=== PATIENT | female | born 1935 | race Caucasian/White ===

== ENCOUNTER 2018-07-16 12:29 | Inpatient (IN) ==
[2018-07-16 13:24] LABS: EOS# 0.06 X1000 (0.0-0.7); HEMOGLOBIN 10.9 g/dL (12.0-16.0); IMM GRAN# 0.02 X1000 (0.0-0.04); IMM GRAN% 0.7 % (0.0-0.5); LYMPH# 0.25 X1000 (1.2-3.4); LYMPH% 8.5 % (20.5-51.1); MCH 29.4 PG (27-31); MCHC 31.1 g/dL (33-37); MCV 94.3 FL (81-99); MONO# 0.22 X1000 (0.11-0.59); MONO% 7.5 % (1.7-9.3); MPV 9.7 FL (7.4-10.4); NEUT# 2.38 X1000 (1.4-6.5); NEUT% 81.3 % (42.2-75.2); PLT 96 X1000 (130-400); RBC 3.71 XMIL (4.2-5.4); RDW 16.3 % (11.5-14.5); WBC 2.93 X1000 (4.8-10.8)
[2018-07-16 13:26] LABS: INR 1.11; PROTIME 15.2 Seconds (11.0-16.0)
[2018-07-16 13:27] LABS: PTT 31.6 Seconds (22.3-41.8)
[2018-07-16 13:41] LABS: ALB/GLOB RATIO 1.1; ALBUMIN 3.2 g/dL (3.5-5.0); CALCIUM 9.6 mg/dL (8.8-10.2); CREATININE 0.9 mg/dL (0.5-0.9); POTASSIUM 4.5 mmol/L (3.5-5.1); TOTAL BILIRUBIN 0.43 mg/dL (0.20-1.00)
[2018-07-16] MEDS ORDERED: ZOFRAN IV ONE (14:22)
[2018-07-16] MEDS ORDERED: NS 1,000 ML IV ONE (14:22)
[2018-07-16] MEDS ORDERED: MORPHINE IV ONE (14:22)
[2018-07-16] MEDS ORDERED: LASIX IV ONE (14:22)
--- NOTE | 2018-07-16 14:43 | Diag Imaging Result Doc PS360 ---
EXAM: CHEST-PORTABLE 07/16/2018 HISTORY: short of breath TECHNIQUE: AP portable upright at 1435 COMMENT: The inspiration is less optimal than on 05/13/2011. Otherwise, considering differences in inspiration there has been no significant change. IMPRESSION: No acute disease. Electronically signed by Constantine Cardona 07/16/2018 2:41 PM
--- NOTE | 2018-07-16 14:59 | PROVIDER DOCUMENTATION ---
This chart was entered by Lauryn John Scribe, acting as scribe for Murali Ballesteros MD. HPI-General Adult - General Chief Complaint: Weakness Stated Complaint: WEAKNESS,CIRRHOSIS OF THE LIVER Time Seen by Provider: 07/16/18 12:49 Source: patient, family Allergies/Adverse Reactions: Patient Allergies Allergy/AdvReac Type Severity Reaction Status Date / Time No Known Allergies Allergy Verified 06/04/16 12:49 Home Medications: Home Medication List Medication Instructions Recorded Confirmed Last Taken Type ATORVAstatin [Lipitor] 10 mg PO QHS 07/02/14 07/16/18 06/22/18 21:00 History Insulin Glargine,Hum.rec.anlog 34 unit SQ QAM 07/02/14 07/16/18 06/22/18 10:00 History [Lantus Solostar] Levothyroxine Sodium [Synthroid] 150 microgm PO DAILY 07/02/14 07/16/18 22:00 History Verapamil HCl [Verapamil Sr] 240 mg PO DAILY 07/02/14 07/16/18 06/23/18 07:00 History Lansoprazole [Prevacid] 30 mg pe PO QAM 04/24/16 07/16/18 06/23/18 07:00 History Hydrocodone/APAP 7.5 mg/325 mg 1 each PO Q4H PRN PRN #40 tablet 06/06/1606/23/18 07:00 Rx [Mcdonough-7.5] Insulin Glargine [Lantus] 20 unit SUBQ QHS 10/23/17 07/16/18 06/22/18 22:00 History Furosemide [Lasix] 40 mg PO DAILY 03/23/18 07/16/18 06/22/18 11:00 History Spironolactone 1 tab PO BID 03/23/18 07/16/18 06/23/18 07:00 History - History of Present Illness -Gen Adult Nature of Presenting Problems: 82 yowf presents to the ed with c/o ascites. sts had paracentesis 3 weeks prior and had 7 liters removed. pt now has decreased appetite, weakness and sob since fluid overload. pt has noted BLE edema +3 Location of Pain/Injury: reports: abdomen Pain Radiation: reports: no radiation Quality of Pain: reports: fullness Severity: reports: moderate Onset/Duration: reports: other (3 weeks since last paracentesis) Timing: reports: still present, constant, getting worse Context/Activities at Onset: reports: light activity Modifying Factors: improves with: nothing Associated Symptoms: reports: loss of appetite, shortness of breath, weakness. denies: back/neck pain, chest pain, diarrhea, dizziness, headaches, vomiting Similar Symptoms Previously?: Yes Recently seen or treated by another doctor?: Yes Review of Systems - Adult - REVIEW OF SYSTEMS - ADULT Constitutional: reports: no symptoms reported Eyes: reports: no symptoms reported Ears, Nose, Mouth & Throat: reports: no symptoms reported Cardiovascular: denies: chest pain, palpitations Respiratory: reports: shortness of breath. denies: cough, wheezing Gastrointestinal: reports: see HPI, abdominal pain (fullness ascites), poor appetite. denies: diarrhea, nausea, vomiting Genitourinary: reports: no symptoms reported Musculoskeletal: reports: see HPI, muscle weakness (generalized) Integumentary: reports: no symptoms reported Neurological: denies: dizziness/vertigo, headache/migraines Psychiatric: reports: no symptoms reported Endocrine: reports: no symptoms reported Hematologic/Lymphatic: reports: no symptoms reported Allergic/Immunologic: reports: no symptoms reported All Other Systems: Reviewed and Negative Past History - Adult - PAST MEDICAL HISTORY-ADULT Review of Records: reports: Old Records Reviewed, Nursing Assessment Review, Medications Reviewed, Social history reviewed & non-contributory. Major Childhood Illnesses: reports: denies history Cardiovascular: reports: HTN, hyperlipidemia Respiratory: reports: denies history Gastrointestinal: reports: GERD Obstetrical/Gynecological: reports: denies history Genitourinary: reports: denies history Musculoskeletal: reports: denies history Neurological: reports: denies history Psychiatric: reports: denies history Endocrine/Immune: reports: Diabetes Diabetes Type: Type 2 Other Conditions: reports: denies history - PRIOR SURGERIES/PROCEDURES Surgical/Procedure History: reports: reviewed, not pertinent - IMMUNIZATION STATUS Childhood Immunizations: See Nurse Assessment Flu Vaccine: See Nurse Assessment - FAMILY HISTORY Family History: reviewed, not pertinent - SOCIAL HISTORY Smoking: denies Substance Use: denies Living Situation: family Physical Exam-General - PHYSICAL EXAM-ADULT Initial Vital Signs Reviewed: Yes - CONSTITUTIONAL General Appearance: alert, mild distress. negative: appears well - EYES Eyes: PERRL/EOMI, pale conjunctivae - HEAD, EARS, NOSE, MOUTH & THROAT HENMT: other (pale lips). negative: moist mucous membranes - NECK Neck: normal inspection - RESPIRATORY Respiratory: chest non-tender, decreased breath sounds, increased rate (22) - CARDIOVASCULAR Cardiovascular: normal peripheral pulses, tachycardia (102) - GASTROINTESTINAL (ABDOMEN) Abdominal Exam: normal bowel sounds, distended. negative: rigid - LYMPHATIC Lymphatic: no adenopathy - MUSCULOSKELETAL Back Exam: normal inspection Extremity: pelvis stable, swelling (BLE edema) - SKIN Integumentary: warm/dry, pallor - NEUROLOGIC Neurologic: grossly normal - PSYCHIATRIC Psych/Mental Status: normal mood/affect, normal thought content, normal thought process, oriented x 3 Progress - PLAN OF CARE/RESULTS Progress/Plan/Lab Results: Vital Signs - 8 hr 07/16/18 12:42 Temperature 97.0 F L Pulse Rate 98 H Respiratory Rate 18 Blood Pressure 117/66 O2 Sat by Pulse Oximetry 100 Laboratory Results - last 24 hr 07/16/18 07/16/18 07/16/18 12:50 12:50 12:50 WBC 2.93 L RBC 3.71 L Hgb 10.9 L Hct 35.0 L MCV 94.3 MCH 29.4 MCHC 31.1 L RDW Std Deviation 16.3 H Plt Count 96 L MPV 9.7 Immature Gran % (Auto) 0.7 H Neut % (Auto) 81.3 H Lymph % (Auto) 8.5 L [place] % (Auto) 7.5 Eos % (Auto) 2.0 Baso % (Auto) 0.0 Immature Gran # (Auto) 0.02 Neut # (Auto) 2.38 Lymph # (Auto) 0.25 L [place] # (Auto) 0.22 Eos # (Auto) 0.06 Baso # (Auto) 0.00 PT INR PTT (Actin FS) Sodium 138 Potassium 4.5 Chloride 102 Carbon Dioxide 26 Anion Gap 10 BUN 18 Creatinine 0.9 Estimated GFR/1.73 m2 60 BUN/Creatinine Ratio 20 Glucose 61 L Calculated Osmolality 275 Calcium 9.6 Total Bilirubin 0.43 AST 23 ALT 13 Alkaline Phosphatase 143 H Total Protein 6.0 L Albumin 3.2 L Globulin 2.8 Albumin/Globulin Ratio 1.1 Amylase 25 Lipase 15 Plasma/Serum Ethyl Alc 07/16/18 12:50 WBC RBC Hgb Hct MCV MCH MCHC RDW Std Deviation Plt Count MPV Immature Gran % (Auto) Neut % (Auto) Lymph % (Auto) Converse % (Auto) Eos % (Auto) Baso % (Auto) Immature Gran # (Auto) Neut # (Auto) Lymph # (Auto) Converse # (Auto) Eos # (Auto) Baso # (Auto) PT 15.2 INR 1.11 PTT (Actin FS) 31.6 Sodium Potassium Chloride Carbon Dioxide Anion Gap BUN Creatinine Estimated GFR/1.73 m2 BUN/Creatinine Ratio Glucose Calculated Osmolality Calcium Total Bilirubin AST ALT Alkaline Phosphatase Total Protein Albumin Globulin Albumin/Globulin Ratio Amylase Lipase Plasma/Serum Ethyl Alc Orders Category Date Time Status Saline Loc DIRECTED Care 07/16/18 12:46 Active NPO Diet 07/16/18 12:46 Active ALCOHOL BLOOD Stat Lab 07/16/18 12:50 Completed AMYLASE [CHEM] Stat Lab 07/16/18 12:50 Completed CBC WITH ELECTRONIC DIFF [HEME] Stat Lab 07/16/18 12:50 Completed COMPREHENSIVE METABOLIC PANEL [CHEM] Stat Lab 07/16/18 12:50 Completed LIPASE [CHEM] Stat Lab 07/16/18 12:50 Completed PROTIME WITH INR [COAG] Stat Lab 07/16/18 12:50 Completed PTT [COAG] Stat Lab 07/16/18 12:50 Completed TROPONIN T Stat Lab 07/16/18 14:06 Ordered URINALYSIS W/POSS RFLX CULT [URINALYSIS] Stat Lab 07/16/18 12:46 Uncollected Result Diagrams: 07/16/18 12:50 07/16/18 12:50 - XRAY 1 XRAY: Bilateral XRAY Study: Chest Impression: See EMR Report (EXAM: CHEST-PORTABLE 07/16/2018 HISTORY: short of breath TECHNIQUE: AP portable upright at 1435 COMMENT: The inspiration is less optimal than on 05/13/2011. Otherwise, considering differences in inspiration there has been no significant change. IMPRESSION: No acute disease. Electronically signed by Constantine Cardona 07/16/2018 2:41 PM 1441 Interpreting Physician: Constantine Cardona MD Dictated Date/Time: 07/16/18 1440 cc: Murali Ballesteros MD; Jose R Anderson MD) - CONSULTS/PCP/HOSPITALIST Notification #1 *Consult/PCP/Hospitalist*: hospitalist dr quansah Time Discussed: 14:32 Consult Disposition: Admit Departure - Departure Date of Disposition Decision: 07/16/18 Time of Disposition Decision: 14:57 DIAGNOSIS: Myelodysplastic syndrome Cirrhosis of liver Qualifiers: Hepatic cirrhosis type: unspecified hepatic cirrhosis Ascites presence: with ascites Qualified Code(s): K74.60 - Unspecified cirrhosis of liver; R18.8 - Other ascites Dyspnea Qualifiers: Dyspnea type: shortness of breath Qualified Code(s): R06.02 - Shortness of breath; R06.00 - Dyspnea, unspecified; R06.01 - Orthopnea Disposition: ADMITTED INPATIENT 09 Certified Medical Emergency: Emergent Condition: Fair Referrals and Follow-Ups: Jose R Anderson MD [Primary Care Provider] - - Critical Care Note This patient required my direct & personal management of CC.: No Attestation - Physician/ DEVAN Attestation Patient care was provided by Advanced Practice Provider:: No The physician spent face to face time with patient:: Yes Advanced Practice Provider documentation review:: Supervising physician onsite and consulted in the evaluation and care of this patient. The physician did have a face to face encounter with the patient. This chart was documented by the indicated scribe, (Lauryn John Scribe) and accurately reflects the services I performed and decisions made by me, Murali Ballesteros MD, as attested by the provider's signature.
[2018-07-16] MEDS ORDERED: NORCO-7.5 PO PRN ×2 (15:15→17:21)
[2018-07-16 15:46] LABS: RETIC% 2.27 % (0.8-2.1); RETIC-HE 30.4 PG (28.2-36.6)
[2018-07-16 15:49] LABS: IRON SATURATION 28 %; TIBC 346 ug/dL; TOTAL IRON 97 ug/dL (49-151); UNBOUND IRON 249 ug/dL (112-346)
[2018-07-16 16:01] LABS: HEMOGLOBIN A1C 4.7 % (4.8-6.0)
[2018-07-16 16:04] LABS: URINE SOURCE CLEAN CATCH
[2018-07-16 16:08] LABS: BILIRUBIN URINE NEGATIVE (NEGATIVE); BLOOD URINE NEGATIVE (NEGATIVE); COLOR YELLOW; GLUCOSE URINE NEGATIVE (NEGATIVE); KETONE URINE NEGATIVE (NEGATIVE); LEUKOCYTES URINE NEGATIVE (NEGATIVE); NITRITE URINE NEGATIVE (NEGATIVE); PH URINE 7.5; PROTEIN URINE NEGATIVE (NEGATIVE); SP GRAVITY URINE 1.004; TURBIDITY URINE HAZY (CLEAR); UROBILINOGEN URINE NORMAL (NORMAL)
[2018-07-16 16:10] LABS: UR EPITHELIAL CELLS <10 /HPF (<10); URINE BACTERIA NEGATIVE /HPF; URINE RBC <10 /HPF (<10); URINE WBC <10 /HPF (<10)
--- NOTE | 2018-07-16 16:13 | EKG Report ---
Test Performed on : 07/16/2018 4:08:51 PM Test Reason : short of breath Blood Pressure : / mmHG Vent. Rate : 086 BPM Atrial Rate : 086 BPM P-R Int : 162 ms QRS Dur : 076 ms QT Int : 386 ms P-R-T Axes : 073 -16 019 degrees QTc Int : 461 ms Normal sinus rhythm. Minimal voltage criteria for LVH, may be normal variant Possible Anterior infarct (cited on or before 05-JUN-2016) Abnormal ECG When compared with ECG of 05-JUN-2016 06:05, No significant change was found Unconfirmed Result
[2018-07-16 16:15] LABS: URINE CRYSTALS NONE SEEN
--- NOTE | 2018-07-16 16:40 | HISTORY AND PHYSICAL ---
ONCOLOGIST: Dr. Ramesh CARPENTER ROUGH: Dr. Torres PCP: Dr. Jose R Anderson CHIEF COMPLAINT: Weakness and abdominal distention. HISTORY OF PRESENT ILLNESS: Ms. Huntley is an 82-year-old female with a history of cirrhosis of the liver, diabetes mellitus type 2 requiring insulin, question of MDS, chronic pancytopenia, who presents with increasing weakness over the past 3 weeks. Due to her cirrhosis and portal hypertension she has refractory ascites and requires frequent paracentesis. Her most recent was on 06/23/18. She goes to Dr. Ramesh weekly for iron transfusions and was most recently there yesterday. She has been more weak than normal although she denies any specific neurologic complaint, no unilateral weakness, no facial numbness. She c/o abdominal distention and some mild pain but no vomiting, no fever, no hematemesis, no hematochezia or melena. Her workup in the ER has revealed pancytopenia which is indeed chronic, but at baseline and actually somewhat improved from baseline. She is mildly hypoglycemic but otherwise there is no acute abnormalities on lab work. Given her weakness and ascites we have been asked to admit her for further treatment and evaluation. PAST MEDICAL HISTORY: 1. Nonalcoholic steatohepatitis, cirrhosis of the liver with portal hypertension. 2. Question of MDS, the patient does report a blood disorder which she sees Dr. Ramesh for. We did review pathology from previous bone marrow biopsies which was all negative for MDS, she does go to Dr. Ramesh for iron infusions. 3. Essential hypertension. 4. Hyperlipidemia. 5. Diabetes mellitus type 2 requiring insulin. 6. Iron deficiency anemia. SURGICAL HISTORY: Bone marrow biopsy, otherwise none. SOCIAL HISTORY: No tobacco, alcohol, or drug use. FAMILY HISTORY: Noncontributory. REVIEW OF SYSTEMS: A 14-point review of systems obtained and found to be negative with the exception of the HPI. ALLERGIES: No known drug allergies. HOME MEDICATIONS: Lipitor 10 mg p.o. h.s., Lasix 40 mg p.o. daily, Lantus 20 units subcu h.s., glargine insulin 34 units subcu a.m., Prevacid 30 mg p.o. a.m., Synthroid 150 mcg p.o. daily, Aldactone 25 mg b.i.d., verapamil 240 mg p.o. daily. PHYSICAL EXAMINATION: VITAL SIGNS: Blood pressure 117/66. Heart rate 98. Respiratory rate 18. O2 sat 100% on room air. Temperature 97 Fahrenheit. GENERAL: An elderly, chronically ill appearing, 82-year-old female lying on the hospital bed in no acute distress. NEUROLOGIC: She is somewhat lethargic but is able to answer questions appropriately. Follows commands without focal deficits. HEENT: Head is atraumatic and normocephalic. Pupils are equal, round, and reactive to light. Oral mucosa is a bit dry. NECK: Trachea is midline. There is no JVD. CHEST: Clear to auscultation bilaterally. CV: Regular rate and rhythm. S1, S2 is noted. No murmurs. GI: Distended with ascites. Some mild right upper quadrant tenderness to palpation but no rigidity. Bowel sounds are hypoactive. EXTREMITIES: 2+ pitting edema bilaterally. DIAGNOSTIC DATA: WBC 2.93, hemoglobin 10.9, hematocrit 35, platelet count 96. INR 1.11. Sodium 138, potassium 4.5, chloride 102, CO2 26, anion gap 10, BUN 18, creatinine 0.9, glucose 61. LFTs: AST 23, ALT 13, alk phos 143. Troponin negative. Albumin 3.2. ASSESSMENT AND PLAN: 1. Refractory ascites: We will admit and obtain a therapeutic paracentesis with fluid analysis. We will also add albumin q.6 hours x4 doses. We will continue diuretics and volume and electrolyte management. 2. Weakness: Likely multifactorial. We will check ammonia level, iron studies , and recheck her glucose as it is 61, if it is continued low we will give her some IV glucose. No focal deficits noted. 3. Diabetes mellitus: We will add pattern sugars, sliding scale insulin, hold off on her scheduled insulin until her blood sugars have improved a bit. 4. Hyperlipidemia: We will hold off on her statin right now due to her liver issues. 5. Hypertension: Stable. Continue verapamil. 6. Pancytopenia: Likely secondary to her cirrhosis. We will check thyroid studies as well as iron studies. Again, there is a question of myelodysplastic syndrome; however, workup in 2016 was negative for myelodysplastic syndrome. 7. Deep venous thrombosis prophylaxis with SCDs. Further recommendations to follow. Dictated by ESTEFANIA Patel for Jarrett Gibbs MD cc: ESTEFANIA Patel MD Sammy Becdach, MD Khurshid Yousuf, MD Brian R. James, MD I have seen and examined Ms Huntley today. and 2 sons were at her bedside at the encounter. I have also reviewed her labs and imaging studies. Ms feels weak and worsening ascites. I agree with the above HPI and the plan reflect my opinion discussed with the EVALUATION ENGINEER. DANIELLE
[2018-07-16] MEDS ORDERED: D50W SYRINGE IV ONE (17:28)
[2018-07-16] MEDS: ALBUMIN 25% IV SCH ×2 (17:30→22:46)
[2018-07-16] MEDS: MORPHINE IV PRN (20:51)
[2018-07-16] MEDS: ALDACTONE PO SCH (21:08)
[2018-07-16 23:46] LABS: UR POTASSIUM 36.4 mmoll
[2018-07-17] MEDS: ALBUMIN 25% IV SCH ×2 (04:45→10:41)
[2018-07-17 06:39] LABS: EOS# 0.05 X1000 (0.0-0.7); LYMPH% 11.9 % (20.5-51.1); MCH 28.8 PG (27-31); MCV 96.2 FL (81-99); MONO# 0.12 X1000 (0.11-0.59); MONO% 7.1 % (1.7-9.3); MPV 9.6 FL (7.4-10.4); NEUT# 1.31 X1000 (1.4-6.5); PLT 76 X1000 (130-400); RBC 3.12 XMIL (4.2-5.4); RDW 16.1 % (11.5-14.5); WBC 1.68 X1000 (4.8-10.8)
[2018-07-17 06:41] LABS: INR 1.18
[2018-07-17 06:42] LABS: PTT 37.9 Seconds (22.3-41.8)
[2018-07-17] MEDS ORDERED: PRILOSEC PO SCH (07:00)
[2018-07-17] MEDS ORDERED: SYNTHROID PO SCH (07:00)
[2018-07-17 07:05] LABS: ALB/GLOB RATIO 2.3; ALBUMIN 4.3 g/dL (3.5-5.0); CALCIUM 9.6 mg/dL (8.8-10.2); CREATININE 1.2 mg/dL (0.5-0.9); POTASSIUM 3.7 mmol/L (3.5-5.1); TOTAL BILIRUBIN 0.74 mg/dL (0.20-1.00); TOTAL PROTEIN 6.2 g/dL (6.3-8.3)
[2018-07-17] MEDS ORDERED: LASIX IV SCH (09:00)
[2018-07-17] MEDS ORDERED: ISOPTIN SR PO SCH (09:00)
--- NOTE | 2018-07-17 09:06 | Diag Imaging Result Doc PS360 ---
EXAM: US ABD PARACENTESIS W S/I 07/17/2018 HISTORY: ASCITES TECHNIQUE: Ultrasound-guided paracentesis COMMENT: The risks and benefits of the procedure including the possibility of bleeding, infection, or reaction to lidocaine as well as the possibility of inadvertent puncture of hollow viscus was discussed with the patient and she agreed to the procedure. Following sterile preparation the skin and administration 1% lidocaine to the skin and deeper soft tissues the paracentesis catheter was placed and subsequently 7.6 L of clear straw-colored fluid was drained. There are no immediate complications. After the catheter was removed the patient stated that she had had some skin irritation and itching following the previous procedure, which she attributed to the sterile eye drape. If and when the patient returns for another procedure, it may be desirable to substitute other sterile draping for the adhesive eye drape. IMPRESSION: Successful ultrasound-guided paracentesis. Electronically signed by Constantine Cardona 07/17/2018 9:04 AM
[2018-07-17] MEDS: MORPHINE IV PRN (09:31)
[2018-07-17] MEDS ORDERED: DEMEROL IV PRN (09:43)
--- NOTE | 2018-07-17 10:24 | PROGRESS NOTE ---
DATE: 07/17/2018 SUBJECTIVE: Patient is back from procedure, paracentesis. She is feeling much better. They removed 7.6 L of ascitic fluid. Reports mild abdominal pain, but is diffuse. OBJECTIVE: Vital Signs: Temperature 97.9 degrees, heart rate 78, respiratory rate 16, blood pressure 134/49, O2 saturation 100% on room air. General: This is a chronically ill-looking 82- year-old female lying in bed, in no acute distress. HEENT: Head is normocephalic and atraumatic. Neck: No JVD noted. No carotid bruits. No lymphadenopathy. No thyromegaly. Cardiovascular: S1, S2 heard. No murmurs, gallops, or rubs. Regular rate and rhythm. Respiratory: Clear bilaterally to auscultation. No work of breathing or using accessory muscles. Abdomen: Soft, a little bit distended with minimal distention, mild diffuse tenderness to palpation all over 4 quadrants. No signs of peritoneal irritation. Bowel sounds present. Extremity: 1+ pitting edema in both lower extremities. Neurological: Patient is awake and alert. LABORATORY DATA: White cell count 1.68, hemoglobin 9.0, hematocrit 30.0, platelets 76,000 with normal BMP except creatinine 1.2. ASSESSMENT AND PLAN: 1. Nonalcoholic liver cirrhosis with refractory ascites. That is the reason why this patient was admitted to the hospital. We have order therapeutic paracenteses, which was done this morning and so far, they have removed 7.6 liters of ascitic fluid. The patient reports that since last March, she started accumulating fluid in the abdomen. At this point, we have consulted Dr. Torres, who is his primary GI doctor to see there is any further procedures or medication we may do for this patient. At this point, we will continue with the current medications in this case is Lasix 40 mg IV q.24 hour. Patient receiving morphine 2 mg IV q.4 hours. Patient reports still being in pain. I think if that medication is not working, we can try Demerol here and stop morphine. We will see how this patient does. 2. Diabetes mellitus type 2. Patient is on sliding scale and Accu-Cheks before meals and also at bedtime. We will continue with the same management. 3. Hyperlipidemia. Because of liver disease, medication in this case, statin, has been held. 4. Hypertension. Blood pressure is under control. We will continue with home medication, Verapamil. 5. Pancytopenia. I am not quite sure if this patient has myelodysplastic syndrome, as the history and physical mentioned it or this is pancytopenia secondary to liver cirrhosis. In any case, Hematology/Oncology has been consulted. We will follow recommendations. 6. Metabolic encephalopathy. I think this condition is almost resolved. Ammonia level was normal. Patient apparently, as per family, who is at bedside, is more alert and awake. We will continue to monitor. 7. Deep vein thrombosis prophylaxis with SCDs. 8. Disposition. Depending upon clinical situation of the patient and GI recommendations. cc: Roderick Jurado MD
[2018-07-17] MEDS: ALDACTONE PO SCH (10:39)
[2018-07-17 10:44] LABS: TOTAL PROT BODY FLUID 2.5 g/dL
[2018-07-17 10:48] LABS: ALBUMIN BODY FLUID 1.4 g/dL; AMYLASE BODY FLUID 9 U/L
[2018-07-17 11:06] LABS: BODY FLUID SOURCE PERITONEAL FLUID; WBC BF 105 /cumm
[2018-07-17 11:09] LABS: MONOS 80 %; POLYS 20 %
[2018-07-17 12:02] VITALS: BP 114/41
--- NOTE | 2018-07-17 13:41 | HEMO/ONC CONSULTATION ---
DATE: 07/17/2018 ATTENDING PHYSICIAN: Dr. Gibbs REQUESTING PHYSICIAN: Dr. Gibsb We appreciate this consult. CHIEF COMPLAINT: Myelodysplastic syndrome. HISTORY OF PRESENT ILLNESS: Ms. Huntley is a pleasant 82-year-old female with a history of cirrhosis of the liver, diabetes mellitus type 2, myelodysplastic syndrome, chronic pancytopenia, who reports that she had increasing weakness over the prior 3 weeks. The patient does have a history of cirrhosis with portal hypertension and refractory ascites requiring frequent paracentesis. Last paracentesis was on 06/23/2018. The patient is seen by Dr. Ramesh for a history of myelodysplastic syndrome with pancytopenia as well as iron deficiency anemia requiring frequent iron transfusions. The patient reported profound weakness prior to admission. On evaluation, the patient was found to be hypoglycemic. Additionally, the patient was found to be in need of a paracentesis. She was admitted for the same. PAST MEDICAL HISTORY: As in HPI. PAST SURGICAL HISTORY: Bone marrow biopsy. SOCIAL HISTORY: The patient does not use tobacco, alcohol or illicit drugs. FAMILY HISTORY: Negative for any hematologic or oncologic problem. REVIEW OF SYSTEMS: A 14-point review of systems was obtained and is negative except for as mentioned in the HPI. MEDICATIONS ON ADMISSION: 1. Lipitor. 2. Lasix. 3. Lantus insulin. 4. Glargine insulin. 5. Prevacid. 6. Synthroid. 7. Aldactone. 8. Verapamil. ALLERGIES: The patient has no known drug allergies. PHYSICAL EXAMINATION: Ms. Huntley is a pleasant 82-year-old female lying supine in bed in no immediate distress. Vital signs: Temperature is 98.3, blood pressure 142/82, heart rate 60, respirations 18, O2 saturation is 98% on room air. HEENT: Normocephalic and atraumatic. Mucous membranes are pale and moist. Sclerae are anicteric. Extraocular movements were intact. Neck is supple. Lungs: Clear to auscultation bilaterally. Chest expansion equal bilaterally. CVS: S1 and S2 heard. No murmurs, rubs or gallops. Abdomen: Nondistended, nontender. Bowel sounds positive in all quadrants. No rebound and no guarding noted. Ascites is noted. Extremities without clubbing or cyanosis. The patient does have 1+ bilateral lower extremity edema. Dermatologic: No rashes, bruises or lesions. Neurologic: The patient is awake, alert and oriented x3 and has no focal deficit. DIAGNOSTIC DATA: Hemoglobin is 9.0, hematocrit 30.0, white blood cell count is 1.68, platelets are 76,000. ANC is 1.31. PT is 16.0. INR is 1.18. PTT is 37.9. Sodium is 137, potassium 3.7, chloride 99, CO2 is 27, BUN is 15, creatinine 1.2, and glucose is 84. Calcium is 9.6, magnesium 2.0. LFTs are within normal limits. ASSESSMENT AND PLAN: 1. Myelodysplastic syndrome. Stable at this time. We will continue to monitor CBC. The patient is followed in clinic regularly. 2. Ascites that is refractory, requiring frequent paracentesis. Paracentesis prior to admission was performed in 06/2018. Paracentesis yesterday was significant for removal of 7.6 L. Pathology is currently pending. 3. Weakness. Multifactorial. 4. Pancytopenia. Hemoglobin is currently stable at 9.0. White blood cell count is 1.68, platelet count is 76,000. Of note, the patient is status post Injectafer on 06/14/2018. Additionally, she is status post Aranesp on 07/09/2018. We will continue to monitor CBC. 5. We will follow along with you and make further recommendations pending outcomes. The above reflects the history, exam, assessment and plan of Dr. Cherry. Dictated by ESTEFANIA Marquez for Yamil Cherry MD cc: ESTEFANIA Marquez MD
--- NOTE | 2018-07-17 19:02 | CONSULTATION ---
DATE OF CONSULTATION: 07/17/2018 REASON FOR CONSULTATION: History of cirrhosis of the liver and refractory ascites. HISTORY OF PRESENT ILLNESS: This is an 82-year-old white female who follows in our office frequently for diagnosis of cirrhosis of the liver. She had developed refractory ascites and has had to have frequent paracenteses. Her most recent paracentesis was on 06/23/2018 where 7 L was removed. Prior to that was March 2018 4.9 L was removed. Patient presented with progressive weakness. She really did not report shortness of breath. She states that she was just so weak that she could not take it any more. Her family is at the bedside. I spoke with her . He states he did not really notice any significant confusion but he states he felt like she was having a panic attack. He states her symptoms were similar to when her blood sugar has been low. She did report abdominal pain and abdominal distention and a paracentesis was done this morning with 7.6 L removed. Fluid analysis was reviewed. Currently patient states she feels some improvement after paracentesis. PAST MEDICAL HISTORY: 1. LOW with cirrhosis of the liver and portal hypertension. 2. Myelodysplastic syndrome following with Dr. Ramesh. She receives frequent iron infusions. 3. Hypertension. 4. Hyperlipidemia. 5. Diabetes type 2 on insulin. 6. Iron-deficiency anemia requiring infusions. PAST SURGICAL HISTORY: History of bone marrow biopsy. ALLERGIES: No known drug allergies. HOME MEDICATIONS: Lipitor 10 mg every night, Lasix 40 mg daily, Russell 7.5 every 4 hours as needed, Lantus 20 units subcutaneous every night, Lantus 34 units every morning, Prevacid 30 mg daily, Synthroid 150 mcg daily, spironolactone 1 tablet twice daily, verapamil 240 mg daily. SOCIAL HISTORY: She is . No reported alcohol or tobacco use. REVIEW OF SYSTEMS: Per history of present illness. PHYSICAL EXAMINATION: Vital Signs: Temperature 98 degrees, pulse 75, respirations 16, blood pressure 114/41. General: Patient is awake and alert. No acute distress. Neurologic: She is currently awake and alert. HEENT: Normocephalic, atraumatic. Pupils equal, round, reactive to light. Sclerae nonicteric. Respiratory: Lung sounds essentially clear bilaterally. Cardiovascular: Regular rate and rhythm. Abdomen: Soft with some tenderness with palpation worse on the right side. Positive bowel sounds. Extremities: Bilateral lower extremity edema noted. DIAGNOSTIC RESULTS: Laboratory. Hematology. WBC 1.68, hemoglobin 9.0, hematocrit 30.0, MCV 96.2, platelets 76,000. Coagulation. Pro time 16.0, INR 1.18, PTT 37.9. Chemistry. Sodium 137, potassium 3.7, chloride 99, CO2 27, BUN 15, creatinine 1.2, glucose 84, iron 97, TIBC 346, percent saturation 20, ferritin 419, total bilirubin 0.74, AST 17, ALT 9, alkaline phosphatase 102, ammonia less than 10, amylase 25, lipase 15, TSH 0.44, folate 15.8, vitamin B 12 700. Urinalysis was normal. Ascitic fluid analysis from recent paracentesis showed fluid WBC 105, polynuclear WBCs 20, fluid albumin 1.4, fluid amylase 9. She had 7.6 L of straw colored fluid removed. ASSESSMENT AND PLAN: 1. Refractory ascites. Patient has required more frequent paracentesis. Patient has had 7.6 L of fluid removed. She has received albumin. 2. Weakness. We have discussed with the patient about her diet at home. Recommend 2 g sodium diet but also recommend increasing her protein to build some muscle mass. 3. Cirrhosis of the liver. Continue current diuretics. 4. Diabetes. Continue current management. 5. Pancytopenia. Patient has a history of myelodysplastic syndrome and follows with Dr. Ramesh who has been consulted during her hospitalization. Recommend to follow their recommendations. 6. Fluid analysis does not show evidence of bacterial peritonitis. Recommend continuing diuretics. Recommend 2 g sodium diet but also increasing her protein. Dr. Torres has seen and examined the patient. He has also discussed with her the possibility of TIPS procedure but has discussed risks versus benefits of that procedure. Patient does not want to proceed with this at the current time. Would recommend she be discharged today if possible. Recommend she follow up with us in the office in 1 to 2 weeks and further plans to be made according to her progress. Again patient was also seen and examined by Dr. Torres. Thank you for this consultation. Dictated by ESTEFANIA Abel for José Manuel Torres MD cc: ESTEFANIA Ku MD
--- NOTE | 2018-07-21 17:22 | DISCHARGE SUMMARY ---
ADMISSION DATE: 07/16/2018 DISCHARGE DATE: 07/17/2018 DISCHARGE DIAGNOSES: 1. Refractory ascites status post therapeutic paracentesis. 2. Diabetes mellitus, type 2. 3. Hyperlipidemia. 4. Hypertension. 5. Pancytopenia. CONSULTATIONS: 1. Dr. Torres from Gastroenterology. 2. Dr. Ramesh from Hematology/Oncology. PROCEDURES: 1. Chest x-ray done on admission showed no acute disease. 2. Paracentesis, ultrasound, showed successful ultrasound-guided paracentesis, and they removed 7.6 L of clear ascitic fluid. HOSPITAL COURSE: This is a 89-year-old female with history of known alcoholic cirrhosis of the liver, diabetes mellitus type 2, and question of myelodysplastic syndrome. The patient basically came to the emergency department because of severe ascites. She was admitted to the hospital for that condition, and we consulted Dr. Torres. We ordered therapeutic paracentesis, and they so far were able to remove 7.6 L of ascitic fluid. I have personally talked with Dr. Torres about what else we can do for this patient, and any further procedure that we need to can be done as an outpatient and from his standpoint the patient can be discharged. Also Hematology/Oncology was not planning to do any different on her, and they are planning to see her in the office. The patient is being discharged in stable condition. DISCHARGE PHYSICAL EXAMINATION: Vital signs: Temperature 98.0 degrees, heart rate 75, respiratory rate 16, blood pressure 114/41, O2 saturation 100% on room air. General: This is a chronically ill-looking 82-year-old female, lying in bed, in no acute distress. HEENT: Head is normocephalic, atraumatic. Neck: No JVD noted. No carotid bruits. No lymphadenopathy. No thyromegaly. Cardiovascular: S1 and S2 heard. No murmurs, gallops, or rubs. Regular rate and rhythm. Respiratory: Clear bilaterally to auscultation. No work of breathing or using accessory muscles. Abdomen: A little bit distended with minimal ascites. The patient is not using any accessory muscles or having work of breathing. Abdomen is soft, nontender to palpation. Bowel sounds present. No organomegaly. Extremities: Mild edema in both lower extremities. Neurological: Patient alert, oriented x3. Moves 4 extremities. DISCHARGE DISPOSITION: Home to self-care. DISCHARGE MEDICATIONS: We are not going to make any changes to this current list of medications. cc: Roderick Jurado MD
== END 2018-07-17 15:13 | disposition home or self-care (01) | DRG 433 ==
LOC: ED 12:29 → DIRADM 12:29 → SUATTDRO 16:27 → 4N 16:27 → UNDODISIN 07-17 15:13
PROVIDERS: ATTEND Internal Medicine
CPT/HCPCS: 49083; 71010; 71045; 80053; 80307; 80320; 81001; 82042; 82055; 82140; 82150; 82607; 82728; 82746; 82948; 83036; 83540; 83550; 83690; 83735; 84133; 84157; 84300; 84443; 84484; 85025; 85045; 85610; 85730; 86850; 86900; 86901; 87070; 87075; 89051; 93005; 96374; 96375; 99285; A9270; G0480; G6040; J1940; J2270; J2405; J7030; P9047; XXXXX

== ENCOUNTER 2018-11-16 10:19 | Inpatient (IN) ==
--- NOTE | 2018-11-16 10:51 | Diag Imaging Result Doc PS360 ---
CT HEAD/C-SPINE W/O CONTRAST - 11/16/2018 INDICATION: fall, on floor COMPARISON: 06/04/2016 FINDINGS: Head CT: There is a right posterior scalp contusion. No skull fracture. The ventricles and sulci are normal in size and contour. No intracranial mass or hemorrhage. There is some mild scattered sinusitis. Cervical spine: Alignment is anatomic. No fracture or subluxation. There is mild multilevel degenerative disc disease. No central canal stenosis. Moderate vascular disease of both carotid bulbs. Stable from prior. IMPRESSION: 1. Right posterior scalp contusion. No intracranial injury. 2. No acute injury to the cervical spine. This exam was performed using automated exposure control, adjustment of mA or kV according to patient size, and/or use of iterative reconstruction technique Electronically signed by Landon Robertson 11/16/2018 10:49 AM
[2018-11-16 11:45] LABS: EOS# 0.01 X1000 (0.0-0.7); EOS% 0.2 % (0.0-10.0); HEMATOCRIT 31.1 % (37.0-47.0); HEMOGLOBIN 9.9 g/dL (12.0-16.0); LYMPH# 0.14 X1000 (1.2-3.4); MCH 30.7 PG (27-31); MCHC 31.8 g/dL (33-37); MCV 96.6 FL (81-99); MONO# 0.25 X1000 (0.11-0.59); MONO% 5.3 % (1.7-9.3); MPV 9.4 FL (7.4-10.4); NEUT# 4.33 X1000 (1.4-6.5); NEUT% 91.5 % (42.2-75.2); PLT 108 X1000 (130-400); RBC 3.22 XMIL (4.2-5.4); RDW 14.8 % (11.5-14.5); WBC 4.73 X1000 (4.8-10.8)
[2018-11-16 11:49] LABS: AGAP 8; ALB/GLOB RATIO 1.4; ALBUMIN 2.8 g/dL (3.5-5.0); ALKALINE PHOSPHATASE 145 U/L (32-104); BUN 23 mg/dL (8-22); CALCIUM 8.7 mg/dL (8.8-10.2); CHLORIDE 97 mmol/L (98-107); CK PROFILE 39 U/L (24-173); COSMO 269; CREATININE 0.8 mg/dL (0.5-0.9); ESTIMATED GFR > 60; GLUCOSE 108 mg/dL (70-104); GOT 29 U/L (10-30); GPT 17 U/L (10-36); SODIUM 132 mmol/L (136-145); TCO2 27 mmol/L (25-35); TOTAL BILIRUBIN 0.52 mg/dL (0.20-1.00); TOTAL PROTEIN 4.8 g/dL (6.3-8.3)
[2018-11-16 12:00] LABS: INR 1.14; PROTIME 15.5 Seconds (11.0-16.0)
[2018-11-16 12:01] LABS: PTT 37.9 Seconds (22.3-41.8)
--- NOTE | 2018-11-16 12:01 | Diag Imaging Result Doc PS360 ---
CHEST-PORTABLE - 11/16/2018 INDICATION: cough and difficulty breathing COMPARISON: 07/16/2018 FINDINGS: Lung volumes are severely low. There is some ill-defined infiltrate throughout the left upper and lower lung zones. There is cardiomegaly and mild pulmonary vascular congestion. No pneumothorax or large pleural effusion. IMPRESSION: Nonspecific findings. Electronically signed by Landon Robertson 11/16/2018 11:58 AM
[2018-11-16 12:22] LABS: BANDS 4 % (0-1); LYMPHS 2 % (21-51); MONO 2 % (1-9); SEGS 92 % (42-75)
[2018-11-16] MEDS ORDERED: D5W 1,000 ML ONE (12:41)
[2018-11-16] MEDS ORDERED: D50W SYRINGE IV ONE (12:43)
[2018-11-16] MEDS ORDERED: D5 NS 1,000 ML IV ONE (12:52)
[2018-11-16] MEDS ORDERED: ZOFRAN IV ONE (13:04)
[2018-11-16] MEDS ORDERED: DILAUDID IV ONE (13:04)
--- NOTE | 2018-11-16 14:13 | EKG Report ---
Test Performed on : 11/16/2018 10:42:00 AM Test Reason : ED. NO EKG ORDER FOR MUSE Blood Pressure : / mmHG Vent. Rate : 087 BPM Atrial Rate : 087 BPM P-R Int : 134 ms QRS Dur : 078 ms QT Int : 376 ms P-R-T Axes : 042 -09 036 degrees QTc Int : 452 ms Normal sinus rhythm. Cannot rule out Anterior infarct (cited on or before 05-JUN-2016) Abnormal ECG When compared with ECG of 16-JUL-2018 16:08, Nonspecific T wave abnormality no longer evident in Anterior leads Nonspecific T wave abnormality now evident in Lateral leads Unconfirmed Result
--- NOTE | 2018-11-16 15:12 | Diag Imaging Result Doc PS360 ---
US ABD PARACENTESIS W S/I - 11/16/2018 INDICATION: ascites, shortness of breath COMPARISON: 11/04/2018 FINDINGS: The risks and benefits of the procedure were discussed with the patient. All questions were answered. Written and verbal consent was obtained. Ultrasound scanning demonstrated ascites. Overlying skin was prepped and draped in sterile fashion. Local anesthesia was achieved with injection of 10 cc 1% lidocaine. The paracentesis catheter was advanced until the return of ascites fluid. 8.5 L of natacha fluid was aspirated. The catheter was withdrawn intact. There were no known complications. IMPRESSION: Technically successful ultrasound-guided paracentesis with no known complications. Electronically signed by Tonio Christy 11/16/2018 3:09 PM
[2018-11-16] MEDS ORDERED: ALBUMIN 25% IV ONE (15:15)
--- NOTE | 2018-11-16 17:12 | HISTORY AND PHYSICAL ---
CHIEF COMPLAINT: Fall and head injury. HISTORY OF PRESENT ILLNESS: Patient is an 83-year-old female with history of cirrhosis, insulin- dependent diabetes, hyperlipidemia, hypothyroidism. She presented to the ER after a fall this morning. She states that she got one of the feet of her walker caught on something in the bathroom and fell, striking her head. She denies loss of consciousness. She states that there was a significant amount of blood, so she put a towel underneath her head and called for her , who came shortly thereafter. states that when he arrived, she was slightly woozy, but awake and talking to him. He denies any loss of consciousness subsequent to his arrival. EMS was called and on arrival, checked her blood glucose which was reportedly 35. They gave more glucose en route, and it came up into the 40s, then gave more glucose. On arrival here, glucose found to be 93. On most recent recheck, it had come up to 167. The patient denies dizziness, vertigo, nausea/vomiting, diarrhea, fever, chills, increased cough, dyspnea, chest pain. She states that she frequently does not eat very well because of her cirrhosis and ascites and has lost significant weight. She states that they have been having to decrease her insulin intermittently for quite a while. She was previously on 40 units and is down to 28 units of Lantus. She does not regularly check her sugar at home, so she is not sure what it has been running recently. Patient was noted to have recurrent massive ascites in the ER and a paracentesis was performed with 8.5 L out and she was subsequently given albumin. REVIEW OF SYSTEMS: A 12-point review of systems negative except as per Interval History. LABORATORIES: WBC 4.7, hemoglobin 9.2, hematocrit 31.1, platelets 108,000. INR 1.14. Sodium 132, potassium 4, bicarbonate 27, BUN 23, creatinine 0.8, glucose initially 93, repeat 108, re- repeat 167, alkaline phosphatase 145, total bilirubin 0.5, AST 29, ALT 17. Troponin negative. Total protein 4.8, albumin 2.8. IMAGIN. CT head and C-spine with right posterior scalp contusion, but no acute bony injury to the skull or spine. No brain bleed. 2. Chest x-ray: Nonspecific findings with cardiomegaly, mild pulmonary vascular congestion which appears roughly stable from previous. ALLERGIES: Iodinated contrast. PAST MEDICAL HISTORY: 1. Nonalcoholic steatohepatitis with cirrhosis. 2. Hypertension. 3. Hyperlipidemia. 4. Insulin-dependent diabetes. 5. Chronic pancytopenia. 6. Hypothyroidism. SURGICAL HISTORY: Bone marrow biopsies, numerous paracenteses. SOCIAL HISTORY: No tobacco, alcohol, or drug use. FAMILY HISTORY: Parents both , father with cancer, mother of unknown causes. VITALS: Temperature 98 degrees, pulse 82, respirations 18, blood pressure 152/73, O2 saturation 98% on room air. PHYSICAL EXAMINATION: GENERAL: No acute distress. Chronically ill-appearing. VITALS: As above. HEENT: Significant matted blood in the right back of the head. Large contusion on the right occipital scalp. Tiny laceration, maybe 1 mm, noted with no active bleeding. Moist mucous membranes. NECK: No cervical adenopathy. CARDIOVASCULAR: Regular rate and rhythm. No rubs noted. PULMONARY: Some scattered rhonchi, bibasilar crackles. Otherwise clear. ABDOMEN: Soft, nontender, nondistended. Bowel sounds positive. EXTREMITIES: Peripheral pulses intact. No clubbing or cyanosis. NEUROLOGIC: Cranial nerves grossly intact. Mild global weakness and somewhat reduced range of motion throughout, but no focal deficits. Pupils are equal, round, and reactive to light and no photophobia. PSYCHIATRIC: Normal mood and affect. Awake, alert, oriented x3. SKIN: Head contusion as above. Otherwise no new rashes or lesions identified. ASSESSMENT AND PLAN: 1. Fall with head injury. Appears to be a trip and fall at home. Likely exacerbated by patient's hypoglycemia. Glucose improving here, but she is on long-acting insulin at home. We will monitor overnight, give her glucose-containing fluids, and watch her sugar. If sugar is improving in the morning, we will stop fluids, and she can likely go home on significantly reduced dose of Lantus. 2. Cirrhosis with ascites. Large-volume paracentesis performed in the ED with subsequent albumin administration. No need for further intervention at this time. 3. Hyperlipidemia. Continue statin. 4. Hypothyroidism. Continue home Synthroid. 5. Diabetes mellitus. Holding home insulin for now. Frequent glucose checks to watch for further hyperglycemia. We will start insulin if glucose becomes significantly elevated. 6. Pancytopenia, likely due to patient's known cirrhosis. Essentially stable from previous. 7. Hypoglycemia. Glucose-containing fluids as above. Likely due to recent weight loss. Patient's currently Lantus dose is too much for her. We will plan on reducing on discharge. [facility]
--- NOTE | 2018-11-16 17:52 | PROVIDER DOCUMENTATION ---
This chart was entered by Virginia Lundberg Scribe, acting as scribe for Tiffanie Ortiz MD. HPI-Head Injury - General Stated Complaint: FALL Time Seen by Provider: 11/16/18 10:23 Source: patient, EMS Allergies/Adverse Reactions: Patient Allergies Allergy/AdvReac Type Severity Reaction Status Date / Time Iodinated Contrast- Oral and AdvReac Unknown Verified 11/04/18 09:44 IV Dye [IV Dye] Home Medications: Home Medication List Medication Instructions Recorded Confirmed Last Taken Type ATORVAstatin [Lipitor] 10 mg PO QHS 07/02/14 11/16/18 11/03/18 21:00 History Levothyroxine Sodium [Synthroid] 150 microgm PO DAILY 07/02/14 11/16/18 11/03/18 21:00 History Verapamil HCl [Verapamil Sr] 240 mg PO DAILY 07/02/14 11/16/18 11/03/18 09:00 History Lansoprazole [Prevacid] 30 mg pe PO QAM 04/24/16 11/16/18 11/03/18 09:00 History Insulin Glargine [Lantus] 28 unit SUBQ BID 10/23/17 11/16/18 11/03/18 21:00 History Furosemide [Lasix] 80 mg PO DAILY 03/23/18 11/16/18 11/03/18 09:30 History Docusate Sodium [Colace] 100 mg PO DAILY 11/04/18 11/16/18 11/03/18 21:00 History Hydrocodone/Acetaminophen 1 ea PO TID 11/16/18 11/16/18 Unknown History [Hydrocodone-Acetamin 10-325 mg] Spironolactone [Aldactone] 100 mg PO DAILY 11/16/18 11/16/18 Unknown History - History of Present Illness-Head Injury Nature of Presenting Problem: Patient is a 83 year old female who presents to the ED via EMS with a head injury. EMS states patient fell and hit her head this morning. Patient denies pain currently. EMS states patient's FSBS was 38. Patient also states history of cirrhosis and states her next paracentesis is in 2 days. EMS reports unsure of LOC. Head Injury Location: reports: occipital (right) Other injuries associated with incident:: reports: none Quality of Pain: reports: none Severity: reports: mild Onset/Duration: reports: this morning Timing: reports: still present Method of Injury: reports: fell Any recent trauma/injury?: reports: to head Loss of Consciousness: unsure Injury Associated Symptoms: reports: denies symptoms Locality of Occurance: Home Similar Symptoms Previously?: No Recently seen or treated by another doctor?: Yes Review of Systems - Adult - REVIEW OF SYSTEMS - ADULT Constitutional: reports: no symptoms reported. denies: chills, fever, fatique Eyes: reports: no symptoms reported Ears, Nose, Mouth & Throat: reports: no symptoms reported Cardiovascular: reports: no symptoms reported Respiratory: reports: no symptoms reported Gastrointestinal: reports: no symptoms reported. denies: diarrhea, nausea, vomiting Genitourinary: reports: no symptoms reported Musculoskeletal: reports: no symptoms reported Integumentary: reports: no symptoms reported Neurological: reports: no symptoms reported, other (head injury). denies: dizziness/vertigo, headache/migraines, syncope Psychiatric: reports: no symptoms reported Endocrine: reports: no symptoms reported Hematologic/Lymphatic: reports: no symptoms reported Allergic/Immunologic: reports: no symptoms reported All Other Systems: Reviewed and Negative Past History - Adult - PAST MEDICAL HISTORY-ADULT Review of Records: reports: Old Records Reviewed, Nursing Assessment Review, Medications Reviewed, Social history reviewed & non-contributory. Major Childhood Illnesses: reports: denies history Cardiovascular: reports: HTN, hyperlipidemia Respiratory: reports: denies history Gastrointestinal: reports: GERD, liver disease Obstetrical/Gynecological: reports: denies history Genitourinary: reports: denies history Musculoskeletal: reports: denies history Neurological: reports: denies history Psychiatric: reports: denies history Endocrine/Immune: reports: Diabetes, thyroid disorder Other Conditions: reports: denies history - PRIOR SURGERIES/PROCEDURES Surgical/Procedure History: reports: reviewed, not pertinent, cholecystectomy, hysterectomy - IMMUNIZATION STATUS Childhood Immunizations: See Nurse Assessment Flu Vaccine: See Nurse Assessment - FAMILY HISTORY Family History: reviewed, not pertinent - SOCIAL HISTORY Smoking: denies Substance Use: denies Living Situation: family Physical Exam- Neurological - Physical Exam-Neuro Initial Vital Signs Reviewed: Yes General Appearance: alert, no apparent distress. negative: lethargic, slow to respond Eye Exam: bilateral eye: normal inspection Head Injury: swelling (right side occipital), other (hematoma to right occipital with small puncture wound). negative: active bleeding, raccoon eyes Respiratory: chest non-tender, lungs clear, normal breath sounds. negative: crackles, stridor Cardiovascular: normal peripheral pulses, regular rate, rhythm. negative: tachycardia, systolic murmur Abdominal Exam: normal bowel sounds, non tender, soft, distended. negative: guarding, rebound Extremity: normal range of motion, non-tender, other (edema to bilateral lower extremities.). negative: deformity pan shaker Exam: normal hearing, normal speech. negative: abnormal speech, facial droop Motor/Sensory: no motor deficit, no sensory deficit, no pronator drift. negative: sensory deficit Neurologic: grossly normal, no motor/sensory deficits. negative: aphasia, facial droop, motor weakness Integumentary: normal color, normal turgor, warm/dry Psych/Mental Status: normal mood/affect, oriented x 3. negative: anxious, paranoid - Glascow Coma Scale Best Eye Response: (4) open spontaneously Best Verbal Response: (5) oriented Best Motor Response: (6) obeys commands Total Glascow Score: 15 Progress - PLAN OF CARE/RESULTS Progress/Plan/Lab Results: Orders Category Date Time Status [facility] Routine AdmDCTranf 11/16/18 20:18 Active Activity - Up with Assistance ORDERED Care 11/16/18 20:18 Active Apply Mechanical Device [QM] ORDERED Care 11/16/18 20:18 Active FSBS/Accucheck Result Q4HR Care 11/16/18 20:18 Active Intake and Output-Strict ORDERED Care 11/16/18 20:18 Active Misc. NRSG Communication Order DIRECTED Care 11/16/18 20:18 Active Vital Signs Order Q 8-HR ASSESS Care 11/16/18 20:18 Active Z-Document. for Tele Applied ORDERED Care 11/16/18 20:18 Completed Diabetic Diet Diet 11/16/18 20:18 Active Regular Diet Diet 11/16/18 11:07 Completed CHEST-PORTABLE [RAD] Stat Exams 11/16/18 11:[address] HEAD/C-SPINE W/O CONTRAST [CT] Stat Exams 11/16/18 10:23 Completed US ABD PARACENTESIS W S/I [US] Stat Exams 11/16/18 11:35 Completed AMMONIA [CHEM] Stat Lab 11/16/18 11:05 Completed BASIC METABOLIC PANEL [CHEM] Routine Lab 11/17/18 06:45 Completed CBC WITH DIFF [HEME] Routine Lab 11/17/18 06:45 Completed CBC WITH DIFF [HEME] Stat Lab 11/16/18 11:05 Completed CK PROFILE [SP CHEM] Stat Lab 11/16/18 11:05 Completed COMPREHENSIVE METABOLIC PANEL [CHEM] Stat Lab 11/16/18 11:05 Completed PROTIME WITH INR [COAG] Stat Lab 11/16/18 11:05 Completed PTT [COAG] Stat Lab 11/16/18 11:05 Completed TROPONIN T Stat Lab 11/16/18 11:05 Completed ATORVAstatin [Lipitor] Med 11/16/18 21:00 Active 10 mg PO QHS Albumin 25% Med 11/16/18 15:15 Discontinued 50 gm IV ONCE ONE Dextrose 5%-0.9% NaCl Inj [D5 Ns] 1,000 ml Med 11/16/18 12:52 Discontinued IV 125 mls/hr Dextrose 5%-0.9% NaCl Inj [D5 Ns] 1,000 ml Med 11/16/18 20:18 Discontinued IV 60 mls/hr Dextrose 5%-Water Inj [D5w] 1,000 ml Med 11/16/18 12:41 Discontinued .ROUTE As directed Dextrose 50% Syringe [D50w Syringe] Med 11/16/18 12:43 Discontinued 50 ml IV NOW ONE Docusate Sodium [Colace] Med 11/17/18 09:00 Active 100 mg PO DAILY Furosemide [Lasix] Med 11/17/18 09:00 Active 80 mg PO DAILY Hydrocodone/APAP 10 mg/325 mg [[place]-10] Med 11/16/18 20:18 Active 1 each PO Q4H PRN PRN Hydromorphone [Dilaudid] Med 11/16/18 13:04 Discontinued 0.5 mg IV NOW ONE Lansoprazole Rap.d.r [Prevacid Solutab] Med 11/17/18 09:00 Active 30 mg PO QAM Levothyroxine [Synthroid] Med 11/17/18 09:00 Active 150 microgm PO DAILY Ondansetron [Zofran] Med 11/16/18 13:04 Discontinued 4 mg IV NOW ONE Ondansetron [Zofran] Med 11/16/18 20:18 Active 4 mg IV Q4H PRN PRN Spironolactone [Aldactone] Med 11/17/18 09:00 Active 100 mg PO DAILY Verapamil S.r. [Isoptin Sr] Med 11/17/18 09:00 Active 240 mg PO DAILY Telemetry [OM.EQ] Routine Oth 11/16/18 20:18 Active EKG [EKG] Stat Ther 11/16/18 10:42 Draft Physical Therapy Eval/Treatment [OM.PT] Routine Ther 11/16/18 20:18 Active Transfer/Admit Order [TRANSFER] Routine Transfer 11/16/18 15:40 Completed Result Diagrams: 11/17/18 06:45 11/17/18 06:45 - EKG 1 Time of EKG reading by physician:: 10:42 EKG Read and Signed by:: Tiffanie Ortiz EKG Interpretation (*Must complete 3 of following elements*): Abnormal Rate: 87 Rhythm: normal sinus rhythm [place]: normal GA Interval: normal Comments: cannot rule out anterior infarct, age undetermined - XRAY 1 XRAY Study: Chest Impression: See EMR Report (CHEST-PORTABLE - 11/16/2018 INDICATION: cough and difficulty breathing COMPARISON: 07/16/2018 FINDINGS: Lung volumes are severely low. There is some ill-defined infiltrate throughout the left upper and lower lung zones. There is cardiomegaly and mild pulmonary vascular congestion. No pneumothorax or large pleural effusion. IMPRESSION: Nonspecific findings. Electronically signed by Landon Robertson 11/16/2018 11:58 AM 11/16/18 1158 Interpreting Physician: Landon Robertson MD Dictated Date/Time: 11/16/18 1158 cc: Tiffanie Ortiz MD; None,PCP) - CT/MRI 1 CT Study: Cervical Spine, Head Impression: See EMR Report ( CT HEAD/C-SPINE W/O CONTRAST - 11/16/2018 AURELIO CATION: fall, on floor COMPARISON: 06/04/2016 FINDINGS: Head CT: There is a right posterior scalp contusion. No skull fracture. The ventricles and sulci are normal in size and contour. No intracranial mass or hemorrhage. There is some mild scattered sinusitis. Cervical spine: Alignment is anatomic. No fracture or subluxation. There is mild multilevel degenerative disc disease. No central canal stenosis. Moderate vascular disease of both carotid bulbs. Stable from prior. IMPRESSION: 1. Right posterior scalp contusion. No intracranial injury. 2. No acute injury to the cervical spine. This exam was performed using automated exposure control, adjustment of mA or kV according to patient size, and/or use of iterative reconstruction technique Electronically signed by Landon Robertson 11/16/2018 10:49 AM 11/16/18 1049 Interpreting Physician: Landon Robertson MD Dictated Date/Time: 11/16/18 1046 cc: Tiffanie Ortiz MD; None,PCP) - ULTRASOUND (By Radiology) 1 US Study: Abdomen (ABD PARACENTESIS W S/I) Impression: See EMR Report ( US ABD PARACENTESIS W S/I - 11/16/2018 INDICATION: ascites, shortness of breath COMPARISON: 11/04/2018 FINDINGS: The risks and benefits of the procedure were discussed with the patient. All questions were answered. Written and verbal consent was obtained. Ultrasound scanning demonstrated ascites. Overlying skin was prepped and draped in sterile fashion. Local anesthesia was achieved with injection of 10 cc 1% lidocaine. The paracentesis catheter was advanced until the return of ascites fluid. 8.5 L of natacha fluid was aspirated. The catheter was withdrawn intact. There were no known complications. IMPRESSION: Technically successful ultrasound-guided paracentesis with no known complications. Electronically signed by Tonio Christy 11/16/2018 3:09 PM 11/16/18 1509 Interpreting Physician: Tonio Christy MD Dictated Date/Time: 11/16/18 1509 cc: Tiffanie Ortiz MD; Jose R Anderson MD) - CONSULTS/PCP/HOSPITALIST Notification #1 *Consult/PCP/Hospitalist*: ESTEFANIA Schuster for Hospitalist Time Discussed: 14:06 Reason/Comments: Dr. Ortiz consulted with Mariely about patient. Consult Disposition: Will see in ED, Admit Departure - Departure Date of Disposition Decision: 11/16/18 Time of Disposition Decision: 14:07 DIAGNOSIS: Fall, Head injury, Hypoglycemia, Cirrhosis Disposition: ADMITTED INPATIENT 09 Certified Medical Emergency: Emergent Condition: Stable - Critical Care Note This patient required my direct & personal management of CC.: No Attestation - Physician/ DEVAN Attestation The physician spent face to face time with patient:: Yes Advanced Practice Provider documentation review:: Supervising physician onsite and consulted in the evaluation and care of this patient. The physician did have a face to face encounter with the patient. This chart was documented by the indicated scribe, (Virginia Lundberg Scribe) and accurately reflects the services I performed and decisions made by , Tiffanie Ortiz MD, as attested by the provider's signature.
[2018-11-16] MEDS: D5 NS 1,000 ML IV ONE (20:18)
[2018-11-16] MEDS ORDERED: ZOFRAN IV PRN (20:18)
[2018-11-16] MEDS: NORCO-10 PO PRN (20:40)
[2018-11-16] MEDS: LIPITOR PO SCH (22:10)
[2018-11-17] MEDS: D5 NS 1,000 ML IV ONE (05:53)
[2018-11-17 07:15] LABS: EOS# 0.02 X1000 (0.0-0.7); EOS% 0.9 % (0.0-10.0); HEMATOCRIT 29.6 % (37.0-47.0); HEMOGLOBIN 9.4 g/dL (12.0-16.0); LYMPH# 0.25 X1000 (1.2-3.4); LYMPH% 10.6 % (20.5-51.1); MCH 30.8 PG (27-31); MCHC 31.8 g/dL (33-37); MONO# 0.19 X1000 (0.11-0.59); MONO% 8.1 % (1.7-9.3); MPV 9.5 FL (7.4-10.4); NEUT# 1.89 X1000 (1.4-6.5); NEUT% 80.4 % (42.2-75.2); PLT 76 X1000 (130-400); RBC 3.05 XMIL (4.2-5.4); RDW 14.4 % (11.5-14.5); WBC 2.35 X1000 (4.8-10.8)
[2018-11-17 07:40] LABS: AGAP 6; BUN 18 mg/dL (8-22); CALCIUM 8.7 mg/dL (8.8-10.2); CHLORIDE 104 mmol/L (98-107); COSMO 273; CREATININE 0.7 mg/dL (0.5-0.9); ESTIMATED GFR > 60; GLUCOSE 88 mg/dL (70-104); POTASSIUM 4.3 mmol/L (3.5-5.1); SODIUM 136 mmol/L (136-145); TCO2 26 mmol/L (25-35)
[2018-11-17] MEDS: LASIX PO SCH (08:36)
[2018-11-17] MEDS: PREVACID SOLUTAB PO SCH (08:36)
[2018-11-17] MEDS: SYNTHROID PO SCH (08:36)
[2018-11-17] MEDS: COLACE PO SCH (08:36)
[2018-11-17] MEDS: ISOPTIN SR PO SCH (08:36)
[2018-11-17] MEDS: ALDACTONE PO SCH (08:36)
[2018-11-17] MEDS: NORCO-10 PO PRN ×2 (08:49→13:59)
--- NOTE | 2018-11-17 16:15 | PROGRESS NOTE ---
DATE: 11/17/2018 SUBJECTIVE: This patient is resting comfortably in bed. Family members at the bedside, her and son. She is not complaining of any specific problem at this moment. She is not getting her long-acting insulin but her blood sugar has been stable, the lowest is 81 and the highest blood sugar reading was 167 so far. I will continue treating this patient without insulin. She is tolerating p.o. As per the son, she had a good lunch. We will continue with the same management. If the blood sugar is about the same tomorrow, I already talked to them about sending this patient home without insulin. I recommended to monitor her blood sugar readings multiple times a day and go to the primary care doctor with those results so they can adjust the medications. OBJECTIVE: Vital Signs: Temperature 98.4 degrees, pulse 88, respiratory rate 18, blood pressure 96/60, oxygen saturation 98 on room air. HEENT: Head normocephalic. She has a posterior contusion on the right occipital area with a small laceration. No active bleeding. Neck: Supple. No JVD. Central trachea. Cardiovascular: RRR. Abdomen: Soft, nontender, nondistended. No hepatosplenomegaly. Extremities: No edema. No clubbing. No cyanosis. Neurological: This patient is alert and oriented x3. She does follow commands. She has generalized weakness and some reduction of the range of motion. LABORATORY: WBC 2.3, hemoglobin 9.4, hematocrit 29.6, platelets 76,000. Sodium 136, potassium 4.3, chloride 104, bicarbonate 26, BUN 18, creatinine 0.7, glucose 88, calcium 8.7. ASSESSMENT AND PLAN: 1. Fall with head injury. It looks like she tripped and fell at home but she was found to be hypoglycemic. Glucose level seems to be stable. We have been holding her long-acting insulin and she seems to be doing fine. Probably she will go home either without insulin or I will reduce significantly her dose. 2. Cirrhosis with ascites. She had a large volume paracentesis performed in the emergency department with subsequent albumin administration. No need for further intervention at this moment. 3. Hyperlipidemia. Continue with statins. 4. Hypothyroidism. Continue with Synthroid. 5. Type 2 diabetes. Like I said, we will hold her insulin. 6. Pancytopenia, likely secondary to liver injury. 7. Hypoglycemia, likely secondary to insulin treatment at home. cc: Naeem Muhammad MD
[2018-11-17 19:22] LABS: URINE SOURCE CLEAN CATCH
[2018-11-17 19:28] LABS: BILIRUBIN URINE NEGATIVE (NEGATIVE); BLOOD URINE NEGATIVE (NEGATIVE); COLOR YELLOW; GLUCOSE URINE NEGATIVE (NEGATIVE); KETONE URINE NEGATIVE (NEGATIVE); LEUKOCYTES URINE TRACE (NEGATIVE); NITRITE URINE NEGATIVE (NEGATIVE); PROTEIN URINE NEGATIVE (NEGATIVE); SP GRAVITY URINE 1.012; TURBIDITY URINE CLEAR (CLEAR); UROBILINOGEN URINE NORMAL (NORMAL)
[2018-11-17 19:29] LABS: UR EPITHELIAL CELLS <10 /HPF (<10); URINE BACTERIA NEGATIVE /HPF; URINE RBC <10 /HPF (<10); URINE WBC <10 /HPF (<10)
[2018-11-17] MEDS: LIPITOR PO SCH (20:29)
[2018-11-18 07:38] VITALS: BP 128/45
[2018-11-18 07:47] LABS: AGAP 6; BUN 20 mg/dL (8-22); CALCIUM 8.5 mg/dL (8.8-10.2); CHLORIDE 102 mmol/L (98-107); COSMO 276; CREATININE 0.8 mg/dL (0.5-0.9); ESTIMATED GFR > 60; GLUCOSE 184 mg/dL (70-104); POTASSIUM 4.5 mmol/L (3.5-5.1); SODIUM 134 mmol/L (136-145); TCO2 26 mmol/L (25-35)
[2018-11-18] MEDS: ISOPTIN SR PO SCH (09:13)
[2018-11-18] MEDS: PREVACID SOLUTAB PO SCH (09:13)
[2018-11-18] MEDS: LASIX PO SCH (09:13)
[2018-11-18] MEDS: COLACE PO SCH (09:13)
[2018-11-18] MEDS: SYNTHROID PO SCH (09:13)
[2018-11-18] MEDS: ALDACTONE PO SCH (09:13)
[2018-11-18] MEDS: NORCO-10 PO PRN (09:18)
--- NOTE | 2018-11-18 15:16 | DISCHARGE SUMMARY ---
ADMISSION DATE: 11/16/2018 DISCHARGE DATE: 11/18/2018 DISCHARGE DIAGNOSES: 1. Fall with head injury. 2. Cirrhosis with ascites status post large volume paracentesis with subsequent albumin administration. 3. Hypoglycemia. 4. Hypothyroidism. 5. Hyperlipidemia. 6. Type 2 diabetes. 7. Pancytopenia likely secondary to liver injury. PROCEDURES PERFORMED: 1. Head/CT cervical spine CT dated cirrhosis 11/16/2018: Impression right posterior scalp contusion, no intracranial injury, no acute injury to the cervical spine. 2. Electrocardiogram dated 11/16/2018: Impression normal sinus rhythm. 3. Chest x-ray dated 11/16/2018: Impression nonspecific finding, lung volumes are severely low. There is some ill-defined infiltrate throughout the left upper and lower lung zones, cardiomegaly with mild pulmonary vascular congestion. No pneumothorax or large pleural effusion. 4. Paracentesis done on 11/16/2018: Impression successful ultrasound-guided paracenteses, 8.5 L of fluid removed. HOSPITAL COURSE: 83-year-old female with a past medical history of liver cirrhosis, insulin dependent diabetes, hyperlipidemia, hypothyroidism presented to the ER after a fall this morning. She states that she got one of the feet of her walker caught on something in the bathroom and fell and she hit her head. She denied loss of consciousness. She states that there was significant amount of blood, but she put a towel underneath her head and called her who came shortly thereafter. When the arrived she was slightly woozy but awake and talking to him. He denies any loss of consciousness subsequent to this arrival. EMS was called on and on arrival they checked the blood sugar that was low at 35. They gave him her glucose in route, it came up into the 40s and they gave more glucose. On arrival here the blood sugar was found to be 93, the patient denied open examination, any dizziness, vertigo, nausea, vomiting, diarrhea, fever, chills, increased cough, dyspnea, chest pain. She states that she frequently does not the eat very well because of liver cirrhosis and ascites and has lost significant weight. She states also that she was previously on 40 units of insulin twice a day and now she was on 28 twice a day. When this patient was hospitalized we stop completely the insulin treatment. This patient received treatment for her head trauma. All the imaging studies were negative for an acute process. She had a paracentesis done the day of admission and 8.5 L of fluid was removed and she received albumin afterwards. The next day she was feeling better, but she but even though she was not getting insulin she had some episodes of blood sugar around 80 so we decided to keep an eye on her and monitor the blood sugar during the night to see how she behaves, and it went up and after 5:52 p.m. went up to the 200s. I had a really large conversation with the son and the at the bedside as well as the patient yesterday. I explained to them that seen she has been losing weight and she has been having problem eating probably she does not need that amount of insulin. Today, I talked to the son and the patient again and we decided to put this patient on low dose of insulin, around 10 units of insulin Lantus in the afternoon. I explained to them in detail that they need to get the blood sugar reading before meals and at bedtime, and they need to follow up with her doctor within a week so the doctor can do adjustment of the blood sugar. I explained to them that I don't want her to be in the low side of the blood sugar and they seem to understand. This patient will be discharged today to follow up with her primary doctor. It looks like it is going to be the 11/24/2018, Dr. Jose R Anderson. She will continue with the same management at home except for the that we will decrease the amount of units of her insulin Lantus. OBJECTIVE: Vital Signs: Temperature 98.5 degrees, pulse 88, respiratory rate 18, blood pressure 128/45, oxygen saturation 98 on room air. HEENT: Head normocephalic. She has a posterior contusion on the right occipital area with a small laceration. No active bleeding. Neck: Supple. No JVD. No masses. Central trachea. Cardiovascular: RRR. Abdomen: Soft, nontender, slightly distended. No hepatosplenomegaly. Extremities: No edema, no clubbing, no cyanosis. Neurological: The patient is alert. She is oriented x3, probably she has some problem hearing. She has generalized weakness with some reduction of the range of motion. LABORATORY: Sodium 134, potassium 4.5 chloride 90, chloride 102, bicarbonate 26, BUN 20, creatinine 0.8, glucose 184, calcium 8.5. DISCHARGE MEDICATIONS: 1. Atorvastatin 10 mg p.o. at bedtime. 2. Docusate 100 mg p.o. daily 3. Furosemide 80 mg p.o. daily 4. [place] 10 one tablet p.o. t.i.d. 5. Insulin glargine 10 units subcutaneous at bedtime. 6. Lansoprazole 30 mg p.o. q.a.m. 7. Synthroid 150 me mcg p.o. daily. 8. Spironolactone 100 mg p.o. daily. 9. Verapamil 240 mg p.o. daily. FOLLOWUP: Like I mentioned before, this patient will follow up with her primary care doctor on 11/24/2018 at 1:30 p.m. I explained to the patient in detail that she needs to get her blood sugar reading before meals and before bed. Her son was at the bedside and they agree with that. cc: Naeem Muhammad MD
== END 2018-11-18 12:29 | disposition home health service (06) | DRG 638 ==
LOC: SUPCPDRO → EDIPHOLD 10:19 → ED 10:19 → OBSVTOIN 16:41 → SUATTDRO 16:41 → 3N 23:12
PROVIDERS: ADMIT Internal Medicine; ATTEND Internal Medicine
CPT/HCPCS: 49083; 70450; 71010; 71045; 72125; 80048; 80053; 81001; 82140; 82550; 82948; 84484; 85025; 85610; 85730; 87088; 93005; 97162; 97530; A9270; J1170; J2405; J7042; J7070; P9047; XXXXX

== ENCOUNTER 2019-04-18 11:11 | Inpatient (IN) ==
--- NOTE | 2019-04-18 12:01 | PROVIDER DOCUMENTATION ---
HPI-General Adult - General Chief Complaint: Generalized Pain Stated Complaint: GENERALIZED PAIN Time Seen by Provider: 04/18/19 11:15 Source: patient Unable to obtain history due to:: other (Patient not willingly answering questions) Allergies/Adverse Reactions: Patient Allergies Allergy/AdvReac Type Severity Reaction Status Date / Time Iodinated Contrast Media AdvReac Unknown Verified 04/18/19 12:09 [IV Dye] iodine AdvReac Unknown Verified 04/18/19 12:09 Home Medications: Home Medication List Medication Instructions Recorded Confirmed Last Taken Type ATORVAstatin [Lipitor] 10 mg PO QHS 07/02/14 04/18/19 04/11/19 History Levothyroxine Sodium [Synthroid] 150 microgm PO DAILY 07/02/14 04/18/19 04/11/19 History Verapamil HCl [Verapamil Sr] 240 mg PO DAILY 07/02/14 04/18/19 04/11/19 History Lansoprazole [Prevacid] 30 mg pe PO QAM 04/24/16 04/18/19 04/11/19 History Docusate Sodium [Colace] 100 mg PO DAILY 11/04/18 04/18/19 04/11/19 History Spironolactone [Aldactone] 100 mg PO DAILY 11/16/18 04/18/19 04/11/19 History Insulin Glargine,Hum.rec.anlog 30 unit SQ HS 03/15/19 04/18/19 04/11/19 History [Lantus Solostar] Furosemide [Lasix] 40 mg PO DAILY 03/29/19 04/18/19 04/11/19 History Oxycodone HCl/Acetaminophen 1 ea PO BID 04/12/19 04/18/19 Unknown History [Percocet 10-325 mg Tablet] Rifaximin [Xifaxan] 550 mg PO BID 04/12/19 04/18/19 04/11/19 History - History of Present Illness -Gen Adult Nature of Presenting Problems: Patient is a non-toxic appearing 83 year old white female who presents to the ER today with generalized complaints. Patient alert and oriented x3, but when asked questions just says "i don't know." She does agree when asked if she had a paracentis done on 04/12, she denies any SOB or increase in swelling to legs or abdomen. She does say her called 911 because she couldn't get up, but when asked further details she says i dont know. She denies any chest pain, SOB, leg pain, abdominal pain, or back pain. EMS report says 911 was called for upper back pain. They report she fell on , and was evaluated and everything negative and sent home. EMS says they were told her pain was not improved and that was the reason for ER return visit. She is currently denying any back pain or pain anywhere at this time. Location of Pain/Injury: reports: none Pain Radiation: reports: no radiation Quality of Pain: reports: none Onset/Duration: reports: unsure Similar Symptoms Previously?: Yes Recently seen or treated by another doctor?: Yes Review of Systems - Adult - REVIEW OF SYSTEMS - ADULT ROS:: limited per condition Constitutional: reports: see HPI. denies: fever, weight gain Eyes: reports: see HPI Ears, Nose, Mouth & Throat: reports: see HPI Cardiovascular: reports: see HPI. denies: chest pain, palpitations, syncope Respiratory: reports: no symptoms reported. denies: cough, dyspnea on exertion, shortness of breath, wheezing Gastrointestinal: reports: see HPI. denies: abdominal pain, constipation, nausea, poor appetite, vomiting Genitourinary: reports: see HPI Musculoskeletal: reports: see HPI. denies: back pain, muscle weakness Neurological: reports: see HPI. denies: dizziness/vertigo, headache/migraines, loss of balance, numbness Past History - Adult - PAST MEDICAL HISTORY-ADULT Review of Records: reports: Old Records Reviewed, Nursing Assessment Review, Medications Reviewed, Social history reviewed & non-contributory. Major Childhood Illnesses: reports: denies history Cardiovascular: reports: HTN, hyperlipidemia Respiratory: reports: denies history Gastrointestinal: reports: GERD, liver disease Obstetrical/Gynecological: reports: denies history Genitourinary: reports: denies history Musculoskeletal: reports: denies history Neurological: reports: denies history Psychiatric: reports: denies history Endocrine/Immune: reports: Diabetes, thyroid disorder Other Conditions: reports: denies history - PRIOR SURGERIES/PROCEDURES Surgical/Procedure History: reports: reviewed, not pertinent, cholecystectomy, hysterectomy - IMMUNIZATION STATUS Childhood Immunizations: See Nurse Assessment Flu Vaccine: See Nurse Assessment - FAMILY HISTORY Family History: reviewed, not pertinent - SOCIAL HISTORY Smoking: denies Living Situation: family Physical Exam-General - PHYSICAL EXAM-ADULT Initial Vital Signs Reviewed: Yes - CONSTITUTIONAL General Appearance: appears well, alert, no apparent distress, slow to respond - HEAD, EARS, NOSE, MOUTH & THROAT HENMT: normocephalic/atraumatic, moist mucous membranes - NECK Neck: non-tender, full range of motion, supple - RESPIRATORY Respiratory: chest non-tender, lungs clear, normal breath sounds, no respiratory distress - CARDIOVASCULAR Cardiovascular: regular rate, rhythm - GASTROINTESTINAL (ABDOMEN) Abdominal Exam: distended (moderate ascites, abdomen firm) - MUSCULOSKELETAL Back Exam: normal inspection, no CVA tenderness, decreased range of motion Extremity: other (dressing to LLE and LUE, RLE with edema, erythema, no drainage noted. Patient tells me her PCP is treating this and it is unchanged) - SKIN Integumentary: warm/dry, abrasion(s), ecchymosis - PSYCHIATRIC Psych/Mental Status: oriented x 3, depressed affect Progress - PLAN OF CARE/RESULTS Progress/Plan/Lab Results: Vital Signs - 8 hr 04/18/19 11:11 Temperature 97.6 F Pulse Rate 78 Respiratory Rate 20 Blood Pressure 124/73 O2 Sat by Pulse Oximetry 99 Laboratory Results - last 24 hr 04/18/19 11:47 POC Glucose 144 H D Orders Category Date Time Status FSBS [Finger Stick Blood Sugar (ED)] DIRECTED Care 04/18/19 11:30 Completed AMMONIA [CHEM] Stat Lab 04/18/19 11:31 Uncollected BASIC METABOLIC PANEL [CHEM] Stat Lab 04/18/19 11:30 Ordered CBC WITH ELECTRONIC DIFF [HEME] Stat Lab 04/18/19 11:30 Uncollected URINALYSIS W/POSS RFLX CULT [URINALYSIS] Stat Lab 04/18/19 11:31 Uncollected 1215: Sons at bedside, and updated report given. Sons state she fell at home , and was only evaluated by home health, and not by ER or PCP. She has since complaints of right shoulder pain and right hip/pelvis pain. Family states she has an unsteady gait with her walker since fall. 1415: now presents, and labwork and xray results reviewed with patient, sons, and . Sons and state they can not take patient home because they can not care for her with her weakness. They report she takes 45 minutes to get from one room to another, and she has continually gotten weaker. They report they do have home health, but not HH PT. Offered to set up home health PT, but all 3 refuse stating she has failed home health PT before and she needs inpatient rehab. Will review with hospitalist to see if they agree to accept hospital admission for rehab placement. Result Diagrams: 04/18/19 12:04 04/18/19 12:04 - XRAY 1 XRAY Study: Knee ( EXAM: KNEE 1-2 VIEWS-RIGHT HISTORY: right knee pain, fall TECHNIQUE: Two views COMPARISON: None. FINDINGS: No fracture. No dislocation. Mild joint space narrowing with patella bone spurring. IMPRESSION: No acute bony injury. Electronically signed by Dano Maldonado 04/18/2019 12:54 PM) Impression: See EMR Report 2 XRAY Study: Shoulder (EXAM: SHOULDER-RIGHT HISTORY: fall, pain TECHNIQUE: Three views COMPARISON: 05/08/2010 FINDINGS: Long-standing arthritis to the right shoulder with bony remodeling of the humeral head and glenoid. Chronic rotator cuff tear. No separation at the acromioclavicular joint. No fracture. IMPRESSION: Severe long-standing arthritis. No acute fracture identified. Electronically signed by Dano Maldonado 04/18/2019 12:53 PM) Impression: See EMR Report 3 XRAY Study: Pelvis ( EXAM: XRAY PELVIS W/HIP 2-3VW RT HISTORY: fall, pain TECHNIQUE: Two views COMPARISON: None. FINDINGS: No fracture. No dislocation. Long-standing mild arthritis. IMPRESSION: No acute bony injury. Electronically signed by Dano Maldonado 04/18/2019 12:56 PM) Impression: See EMR Report - CONSULTS/PCP/HOSPITALIST Notification #1 *Consult/PCP/Hospitalist*: ESTEFANIA Cancino hospitalist Time Discussed: 14:30 Consult Disposition: Will see in ED, Admit Departure - Departure Date of Disposition Decision: 04/18/19 Time of Disposition Decision: 14:32 DIAGNOSIS: Acute kidney injury, Dehydration, Hyponatremia, Hyperkalemia Cirrhosis Qualifiers: Ascites presence: with ascites Disposition: ADMITTED INPATIENT 09 Certified Medical Emergency: Urgent Condition: Stable Referrals and Follow-Ups: Jose R Anderson MD [Primary Care Provider] - - Critical Care Note This patient required my direct & personal management of CC.: No Attestation - Physician/ DEVAN Attestation Patient care was provided by Advanced Practice Provider:: Yes Advanced Practice Provider:: Jacqueline Talavera Advanced Practice Provider documentation review:: The Mid-level provider documentation, treatment plan and medical decision making was reviewed by the physician who agrees with all treatment and medical decision making by the MLP. The physician spent face to face time with patient:: No Advanced Practice Provider documentation review:: Supervising physician onsite and consulted in the evaluation and care of this patient. The physician did not have a face to face encounter with the patient.
[2019-04-18 12:34] LABS: EOS# 0.03 X1000 (0.0-0.7); EOS% 0.6 % (0.0-10.0); HEMATOCRIT 35.5 % (37.0-47.0); HEMOGLOBIN 11.4 g/dL (12.0-16.0); LYMPH# 0.21 X1000 (1.2-3.4); LYMPH% 3.9 % (20.5-51.1); MCH 31.2 PG (27-31); MCHC 32.1 g/dL (33-37); MCV 97.3 FL (81-99); MONO# 0.35 X1000 (0.11-0.59); MONO% 6.6 % (1.7-9.3); MPV 9.6 FL (7.4-10.4); NEUT# 4.75 X1000 (1.4-6.5); NEUT% 88.9 % (42.2-75.2); PLT 95 X1000 (130-400); RBC 3.65 XMIL (4.2-5.4); RDW 14.6 % (11.5-14.5); WBC 5.34 X1000 (4.8-10.8)
[2019-04-18 12:42] LABS: CALCIUM 10.7 mg/dL (8.8-10.2); CREATININE 1.6 mg/dL (0.5-0.9); POTASSIUM 5.4 mmol/L (3.5-5.1)
--- NOTE | 2019-04-18 12:55 | Diag Imaging Result Doc PS360 ---
EXAM: SHOULDER-RIGHT HISTORY: fall, pain TECHNIQUE: Three views COMPARISON: 05/08/2010 FINDINGS: Long-standing arthritis to the right shoulder with bony remodeling of the humeral head and glenoid. Chronic rotator cuff tear. No separation at the acromioclavicular joint. No fracture. IMPRESSION: Severe long-standing arthritis. No acute fracture identified. Electronically signed by Dano Maldonado 04/18/2019 12:53 PM
--- NOTE | 2019-04-18 12:57 | Diag Imaging Result Doc PS360 ---
EXAM: KNEE 1-2 VIEWS-RIGHT HISTORY: right knee pain, fall TECHNIQUE: Two views COMPARISON: None. FINDINGS: No fracture. No dislocation. Mild joint space narrowing with patella bone spurring. IMPRESSION: No acute bony injury. Electronically signed by Dano Maldonado 04/18/2019 12:54 PM
--- NOTE | 2019-04-18 12:58 | Diag Imaging Result Doc PS360 ---
EXAM: XRAY PELVIS W/HIP 2-3VW RT HISTORY: fall, pain TECHNIQUE: Two views COMPARISON: None. FINDINGS: No fracture. No dislocation. Long-standing mild arthritis. IMPRESSION: No acute bony injury. Electronically signed by Dano Maldonado 04/18/2019 12:56 PM
[2019-04-18 13:21] LABS: URINE SOURCE CLEAN CATCH
[2019-04-18 13:38] LABS: BILIRUBIN URINE NEGATIVE (NEGATIVE); BLOOD URINE NEGATIVE (NEGATIVE); COLOR YELLOW; GLUCOSE URINE NEGATIVE (NEGATIVE); KETONE URINE NEGATIVE (NEGATIVE); LEUKOCYTES URINE TRACE (NEGATIVE); NITRITE URINE NEGATIVE (NEGATIVE); PROTEIN URINE NEGATIVE (NEGATIVE); SP GRAVITY URINE 1.014; TURBIDITY URINE CLEAR (CLEAR); UROBILINOGEN URINE NORMAL (NORMAL)
[2019-04-18 13:40] LABS: UR EPITHELIAL CELLS <10 /HPF (<10); URINE BACTERIA NEGATIVE /HPF; URINE RBC <10 /HPF (<10); URINE WBC <10 /HPF (<10)
[2019-04-18] MEDS ORDERED: NS 1,000 ML IV ONE (14:34)
[2019-04-18] MEDS ORDERED: ZOFRAN IV PRN (14:40)
[2019-04-18] MEDS: HUMULIN R SUBQ SCH ×2 (16:30→21:29)
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
--- NOTE | 2019-04-18 18:49 | HISTORY AND PHYSICAL ---
ADDENDUM: Patient seen and examined by myself. Full note dictated and discussed with nurse practitioner. Patient presented to the hospital after several episodes of falling. The family notes that she has been too weak to care for herself. She has been unable to stand. They have been having to pick her up and move her about. States that she has been having some increased confusion. She has been started recently on Xifaxan to see if this will help. Her ammonia level actually was 29 in the ER currently. She is awake, alert. She is in no respiratory distress. Her creatinine is worse currently at 1.6 with baseline 1.1. Her potassium is low 130, sodium is 5.4. We are going to admit her to the hospital, give her fluids to see if this will help her kidney function. Will continue to follow. She has had bimonthly paracentesis. cc: Reid Amato MD
[2019-04-18] MEDS ORDERED: PERCOCET-10 PO SCH (21:00)
[2019-04-18] MEDS: LANTUS INSULIN SUBQ SCH (21:29)
[2019-04-18] MEDS: XIFAXAN PO SCH (21:29)
--- NOTE | 2019-04-19 05:25 | EKG Report ---
Test Performed on : 04/18/2019 6:33:04 PM Test Reason : bradycardia Blood Pressure : / mmHG Vent. Rate : 062 BPM Atrial Rate : 062 BPM P-R Int : 168 ms QRS Dur : 086 ms QT Int : 412 ms P-R-T Axes : 047 016 039 degrees QTc Int : 418 ms Normal sinus rhythm. Normal ECG When compared with ECG of 16-JUL-2018 16:08, Nonspecific T wave abnormality no longer evident in Anterior leads Unconfirmed Result
[2019-04-19] MEDS: HUMULIN R SUBQ SCH ×4 (06:02→21:21)
[2019-04-19] MEDS: PREVACID SOLUTAB PO SCH (06:03)
[2019-04-19] MEDS: SYNTHROID PO SCH (06:03)
[2019-04-19 07:52] LABS: INR 1.25; PROTIME 15.9 Seconds (11.0-16.0)
[2019-04-19 07:56] LABS: EOS# 0.03 X1000 (0.0-0.7); EOS% 0.3 % (0.0-10.0); HEMATOCRIT 33.4 % (37.0-47.0); HEMOGLOBIN 10.8 g/dL (12.0-16.0); IMM GRAN# 0.02 X1000 (0.0-0.04); IMM GRAN% 0.2 % (0.0-0.5); LYMPH# 0.34 X1000 (1.2-3.4); LYMPH% 3.8 % (20.5-51.1); MCH 31.3 PG (27-31); MCHC 32.3 g/dL (33-37); MCV 96.8 FL (81-99); MONO# 0.58 X1000 (0.11-0.59); MONO% 6.4 % (1.7-9.3); MPV 9.5 FL (7.4-10.4); NEUT# 8.07 X1000 (1.4-6.5); NEUT% 89.3 % (42.2-75.2); PLT 140 X1000 (130-400); RBC 3.45 XMIL (4.2-5.4); RDW 14.8 % (11.5-14.5); WBC 9.04 X1000 (4.8-10.8)
[2019-04-19 08:11] LABS: LYMPHS 6 % (21-51); MONO 8 % (1-9); SEGS 86 % (42-75)
--- NOTE | 2019-04-19 08:24 | PROGRESS NOTE ---
DATE: 04/19/2019 SUBJECTIVE: Patient has no new complaints. There is no family in the room. Patient is confused. PHYSICAL EXAMINATION: Vital Signs: Temperature 98.0 degrees, pulse 89, respiratory rate 18, BP 141/57. General: Patient is awake, alert, but confused, disoriented, does not answer questions appropriately. HEENT: Normocephalic. Neck: Supple. Cardiovascular: Regular rate. Chest: Clear, nonlabored. No wheezing. Abdomen: Soft, mildly distended, appears nontender. Extremities: Moves all extremities. Neurologic: Unable to assess. ASSESSMENT: 1. Acute kidney injury. Continue intravenous fluids. Labs currently pending. 2. Nonalcoholic steatohepatitis with cirrhosis and ascites, for which she has had paracentesis approximately every 2 weeks. 3. Metabolic encephalopathy. Unclear of the etiology currently; it may be due to pain medication, although she is still confused this morning. Her ammonia level is stable at 29 on admission. 4. Recent falls. 5. Diabetes type 2. 6. Hyperlipidemia. 7. Hypertension. PLAN: We are going to continue patient in the hospital. Ask GI to evaluate. Discussed with family yesterday at great length that her dementia may not improve. Certainly may need to consider rehab versus [facility] on discharge. We will get physical therapy involved due to her frequent falls. cc: Reid Amato MD
[2019-04-19] MEDS: XIFAXAN PO SCH ×2 (08:25→21:23)
[2019-04-19] MEDS: COLACE PO SCH (08:25)
[2019-04-19 08:30] LABS: ALB/GLOB RATIO 1.1; ALBUMIN 2.6 g/dL (3.5-5.0); CALCIUM 9.7 mg/dL (8.8-10.2); CREATININE 1.5 mg/dL (0.5-0.9); MAGNESIUM 2.1 mg/dL (1.5-2.7); POTASSIUM 5.2 mmol/L (3.5-5.1); TOTAL BILIRUBIN 0.65 mg/dL (0.20-1.00)
[2019-04-19] MEDS ORDERED: ISOPTIN SR PO SCH (09:00)
[2019-04-19] MEDS: PERCOCET-10 PO PRN (12:50)
[2019-04-19] MEDS: LACTULOSE PO SCH ×2 (12:50→21:24)
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
[2019-04-19] MEDS: LANTUS INSULIN SUBQ SCH (21:22)
[2019-04-20] MEDS: HUMULIN R SUBQ SCH ×4 (06:25→20:54)
[2019-04-20] MEDS: PREVACID SOLUTAB PO SCH (06:28)
[2019-04-20] MEDS: SYNTHROID PO SCH (06:28)
[2019-04-20 06:58] LABS: EOS# 0.05 X1000 (0.0-0.7); EOS% 0.9 % (0.0-10.0); HEMATOCRIT 33.6 % (37.0-47.0); HEMOGLOBIN 10.7 g/dL (12.0-16.0); IMM GRAN# 0.02 X1000 (0.0-0.04); IMM GRAN% 0.4 % (0.0-0.5); LYMPH# 0.34 X1000 (1.2-3.4); LYMPH% 6.3 % (20.5-51.1); MCHC 31.8 g/dL (33-37); MCV 97.4 FL (81-99); MONO# 0.41 X1000 (0.11-0.59); MONO% 7.6 % (1.7-9.3); MPV 9.2 FL (7.4-10.4); NEUT# 4.57 X1000 (1.4-6.5); NEUT% 84.8 % (42.2-75.2); PLT 114 X1000 (130-400); RBC 3.45 XMIL (4.2-5.4); RDW 14.8 % (11.5-14.5); WBC 5.39 X1000 (4.8-10.8)
[2019-04-20 07:36] LABS: ALB/GLOB RATIO 0.9; ALBUMIN 2.4 g/dL (3.5-5.0); CALCIUM 9.5 mg/dL (8.8-10.2); CREATININE 1.2 mg/dL (0.5-0.9); MAGNESIUM 2.1 mg/dL (1.5-2.7); POTASSIUM 5.2 mmol/L (3.5-5.1); TOTAL BILIRUBIN 0.75 mg/dL (0.20-1.00)
[2019-04-20] MEDS: LACTULOSE PO SCH ×2 (09:06→20:53)
[2019-04-20] MEDS: XIFAXAN PO SCH ×2 (09:06→20:53)
[2019-04-20] MEDS: COLACE PO SCH (09:06)
--- NOTE | 2019-04-20 18:14 | PROGRESS NOTE ---
DATE: 04/20/2019 SUBJECTIVE: The patient is resting comfortably in bed. She worked with physical therapy a little bit today. She has no complaints. OBJECTIVE: Vital Signs: Temperature 97.9 degrees, blood pressure 125/73, heart rate 107, respirations 16, O2 saturation is 100% on room air. General: This is a chronically ill- appearing, elderly female lying in bed, in no acute distress. Head: Normocephalic, atraumatic. Heart: S1, S2 normal. Tachycardic. Lungs: Equal air entry bilaterally. Abdomen: Positive bowel sounds. Soft. Mildly distended. Extremities: No edema. No cyanosis. Neurologic: The patient is alert and oriented x3. LABS: White blood cell count 5.3, hemoglobin 10, hematocrit 33, platelets 114,000. Sodium 129, potassium 5.2, chloride 95, CO2 22, BUN 33, creatinine 1.2, glucose 79. AST 34, ALT 32, alkaline phosphatase 252. ASSESSMENT AND PLAN: 1. End-stage liver cirrhosis. Aware. The patient is being followed by Dr. Torres. 2. Refractory ascites. The patient has regularly scheduled paracentesis performed. The patient's diuretic therapy is on hold due to renal insufficiency. 3. Acute kidney injury. Slowly improving. The patient's diuretics are on hold. 4. Hyperkalemia. The patient's Aldactone is currently on hold. 5. Chronic pain. Continue on Percocet. 6. Hypothyroidism. Continue on Synthroid. 7. Hepatic encephalopathy. The patient is on lactulose and rifaximin. 8. Deconditioning. Continue with physical therapy. 9. Insulin-dependent diabetes mellitus. Continue on Lantus and sliding scale insulin. 10. Disposition. The patient will be discharged to inpatient rehab once she is medically stable and a bed is available. cc: [facility]eta Talley [facility]
[2019-04-20] MEDS: LANTUS INSULIN SUBQ SCH (20:54)
--- NOTE | 2019-04-20 21:10 | GASTROENTEROLOGY PROGRESS NOTE ---
DATE: 04/20/2019 SUBJECTIVE: Patient is awake and alert at the time of my visit. Her son was at the bedside. Dr. Talley was also in the room at the time of my visit. We spoke with the patient and son together. OBJECTIVE: Vital Signs: Temperature 98.1 degrees, pulse 102, blood pressure 121/67. General: The patient is awake and alert. She denies current complaints. Son states she has recently gotten up with physical therapy. After adding lactulose yesterday, patient states she had a bowel movement this morning. Abdomen: Distended with ascites, otherwise nontender. LABORATORY: Hematology: WBC 5.39, hemoglobin 10.7, hematocrit 33.6, MCV 97.4, platelet 114,000. Chemistry: Sodium 129, potassium 5.2, chloride 95, CO2 of 22, BUN 33, creatinine 1.2, glucose 79, calcium 9.5, total bilirubin 0.75, AST 34, ALT 32, alkaline phosphatase 252. ASSESSMENT AND PLAN: 1. Cirrhosis of the liver, related to nonalcoholic steatohepatitis. 2. End-stage liver disease with metabolic encephalopathy. Patient has been started on Xifaxan. Also, lactulose was restarted. The patient did have a bowel movement today. She is currently more awake and alert. 3. Recent falls. 4. Acute kidney injury. Currently holding diuretics. Continue intravenous fluids. 5. Other medical problems, diabetes, hyperlipidemia, hypertension, chronic pain. Recommend taking the least amount of pain medication possible. 6. Continue current medications. Continue lactulose and Xifaxan. They are working on possible penitentiary versus rehabilitation. Physical Therapy has been working with her in the hospital. Patient has required frequent paracenteses, usually every 2 weeks. Her last paracentesis was on 04/12/2019. Will plan to repeat paracentesis while she is in the hospital before her discharge. I will order paracentesis for . 7. Further plans will be made as needed. Will continue to follow during the hospital course. I have discussed this case with Dr. Torres. Dictated by ESTEFANIA Abel for José Manuel Torres MD cc: ESTEFANIA Ku MD [facility]
[2019-04-21] MEDS: PERCOCET-10 PO PRN ×2 (06:33→20:44)
[2019-04-21] MEDS: PREVACID SOLUTAB PO SCH (06:33)
[2019-04-21] MEDS: HUMULIN R SUBQ SCH ×4 (06:34→21:09)
[2019-04-21] MEDS: SYNTHROID PO SCH (06:34)
[2019-04-21 07:24] LABS: BASO# 0.01 X1000 (0.0-0.2); BASO% 0.2 % (0.0-0.8); EOS# 0.06 X1000 (0.0-0.7); HEMATOCRIT 36.4 % (37.0-47.0); HEMOGLOBIN 11.7 g/dL (12.0-16.0); LYMPH# 0.45 X1000 (1.2-3.4); LYMPH% 7.5 % (20.5-51.1); MCH 31.4 PG (27-31); MCHC 32.1 g/dL (33-37); MCV 97.6 FL (81-99); MONO# 0.47 X1000 (0.11-0.59); MONO% 7.8 % (1.7-9.3); MPV 9.7 FL (7.4-10.4); NEUT% 83.5 % (42.2-75.2); PLT 129 X1000 (130-400); RBC 3.73 XMIL (4.2-5.4); RDW 14.9 % (11.5-14.5); WBC 5.99 X1000 (4.8-10.8)
[2019-04-21 07:30] LABS: INR 1.24; PROTIME 15.7 Seconds (11.0-16.0)
[2019-04-21 07:53] LABS: ALB/GLOB RATIO 0.9; ALBUMIN 2.5 g/dL (3.5-5.0); CALCIUM 9.6 mg/dL (8.8-10.2); POTASSIUM 5.2 mmol/L (3.5-5.1); TOTAL BILIRUBIN 0.99 mg/dL (0.20-1.00); TOTAL PROTEIN 5.2 g/dL (6.3-8.3)
[2019-04-21] MEDS: XIFAXAN PO SCH ×2 (08:57→20:44)
[2019-04-21] MEDS: LACTULOSE PO SCH ×2 (08:57→20:44)
[2019-04-21] MEDS: COLACE PO SCH (08:57)
--- NOTE | 2019-04-21 12:48 | Diag Imaging Result Doc PS360 ---
CHEST-PORTABLE - 04/21/2019 INDICATION: dyspnea COMPARISON: 11/16/2018 FINDINGS: Lung volumes are critically low. No substantial infiltrates. No large pleural effusion. Heart size is normal. IMPRESSION: Critically low lung volumes. Electronically signed by Landon Robertson 04/21/2019 12:45 PM
[2019-04-21 12:54] LABS: URINE SOURCE CLEAN CATCH
[2019-04-21 13:10] LABS: BILIRUBIN URINE NEGATIVE (NEGATIVE); BLOOD URINE NEGATIVE (NEGATIVE); COLOR YELLOW; GLUCOSE URINE NEGATIVE (NEGATIVE); KETONE URINE TRACE mg/dL (NEGATIVE); LEUKOCYTES URINE TRACE (NEGATIVE); NITRITE URINE POSITIVE (NEGATIVE); PH URINE 5.5; PROTEIN URINE NEGATIVE (NEGATIVE); SP GRAVITY URINE 1.023; TURBIDITY URINE CLEAR (CLEAR); UR EPITHELIAL CELLS <10 /HPF (<10); URINE BACTERIA 2+ /HPF; URINE RBC <10 /HPF (<10); URINE WBC <10 /HPF (<10); UROBILINOGEN URINE 2 mg/dL (NORMAL)
[2019-04-21] MEDS ORDERED: LEVAQUIN PO ONE (13:14)
--- NOTE | 2019-04-21 19:58 | PROGRESS NOTE ---
DATE: 04/21/2019 SUBJECTIVE: The patient is resting in bed. She has no complaints. OBJECTIVE: Vital signs: Temperature 98 degrees, blood pressure 123/69, heart rate 107, respirations 16, O2 saturation is 100% on room air. General: This is a chronically ill- appearing elderly female, lying in bed in no acute distress. Heart: S1, S2 normal. Tachycardic. Lungs: Clear to auscultation bilaterally. Abdomen: Positive bowel sounds. Soft, nontender, nondistended. Extremities: Trace pedal edema. Neurological: The patient is alert and oriented x3. DIAGNOSTIC STUDIES: Sodium 129, potassium 5.2, BUN 30, creatinine 1, glucose 123, alkaline phosphatase 271, AST 44, ALT 40. UA positive for nitrites and trace leukocytes and 2+ bacteria. Chest x-ray shows low lung volumes. ASSESSMENT AND PLAN: 1. End-stage liver cirrhosis with refractory ascites. The patient is scheduled to undergo a paracentesis today. Further management as per Gastroenterology. 2. Acute kidney injury. Slowly resolving. The patient's diuretic therapy is currently on hold. 3. Hyperkalemia. Unchanged. We will continue to hold the Aldactone. 4. Urinary tract infection secondary to Pseudomonas. We will start the patient on oral Levaquin. 5. Hypothyroidism. Continue on Synthroid. 6. Hepatic encephalopathy. Resolved. Continue on lactulose and rifaximin. 7. Insulin-dependent diabetes mellitus. Continue on Lantus and sliding scale insulin. 8. Deconditioning. Continue with physical therapy. DISPOSITION: The patient is currently a DNR level 1. Sewing Machine Operator Plastic Zipper is working on inpatient rehabilitation placement for the patient. cc: [facility]eta Talley [facility]
--- NOTE | 2019-04-21 20:12 | GASTROENTEROLOGY PROGRESS NOTE ---
DATE: 04/21/2019 SUBJECTIVE: At the time of my evaluation, her son was at the bedside. Physical Therapy was working with her. When speaking with her, I did notice some shortness of breath. The patient states she does not feel well today. OBJECTIVE: Vital Signs: Temperature 98.7 degrees, pulse 99, respirations 16, blood pressure 126/75. Percent saturation 98%. General: Patient is awake and alert. Her son is at the bedside. She does have some shortness of breath noted. Physical Therapy is working with her. Abdomen: Distention and ascites noted. LABORATORY: Hematology: WBC 5.99, hemoglobin 11.7, hematocrit 36.4, platelets 129,000. Coagulation: Pro-time 15.7, INR 1.24. Chemistry: Sodium 129, potassium 5.2, chloride 94, CO2 20, BUN 30, creatinine 1.0, glucose 123, total bilirubin 0.99, AST 44, ALT 40, alkaline phosphatase 271, total protein 5.2, albumin 2.5. ASSESSMENT AND PLAN: 1. Cirrhosis of the liver, end-stage liver disease. Continue current management, continuing lactulose and Xifaxan. Patient has had a bowel movement in the last 2 days. 2. Ascites. We will plan for paracentesis, most likely tomorrow, trying to coordinate prior to her discharge. I believe she may be going to either rehabilitation or the jail. Workup is in progress for that. 3. Acute kidney injury. Her diuretics are currently on hold. 4. Hepatic encephalopathy. Continue lactulose and Xifaxan. 5. Hyperkalemia. Patient's Aldactone is on hold. 6. Other medical problems: Chronic pain, hypothyroidism, diabetes. Continue current management. Continue lactulose and Xifaxan. Planning for paracentesis tomorrow. Orders for albumin prior to the paracentesis. Will continue to follow during her hospital course, and follow up with her in the office after discharge. Further plans will be made as needed. I have discussed this case with Dr. Torres. Dictated by ESTEFANIA Abel for José Manuel Torres MD cc: ESTEFANIA Ku MD
[2019-04-22] MEDS: SYNTHROID PO SCH (06:54)
[2019-04-22] MEDS: HUMULIN R SUBQ SCH ×4 (06:54→21:27)
[2019-04-22] MEDS: PREVACID SOLUTAB PO SCH (06:54)
[2019-04-22 07:15] LABS: BASO# 0.01 X1000 (0.0-0.2); BASO% 0.2 % (0.0-0.8); EOS# 0.08 X1000 (0.0-0.7); EOS% 1.3 % (0.0-10.0); HEMOGLOBIN 11.6 g/dL (12.0-16.0); IMM GRAN# 0.03 X1000 (0.0-0.04); IMM GRAN% 0.5 % (0.0-0.5); LYMPH# 0.42 X1000 (1.2-3.4); LYMPH% 6.6 % (20.5-51.1); MCH 31.8 PG (27-31); MCHC 32.2 g/dL (33-37); MCV 98.6 FL (81-99); MONO# 0.44 X1000 (0.11-0.59); MPV 9.6 FL (7.4-10.4); NEUT# 5.35 X1000 (1.4-6.5); NEUT% 84.4 % (42.2-75.2); PLT 133 X1000 (130-400); RBC 3.65 XMIL (4.2-5.4); RDW 14.8 % (11.5-14.5); WBC 6.33 X1000 (4.8-10.8)
[2019-04-22 07:26] LABS: INR 1.3; PROTIME 16.4 Seconds (11.0-16.0)
[2019-04-22 07:40] LABS: ALB/GLOB RATIO 0.8; ALBUMIN 2.3 g/dL (3.5-5.0); CALCIUM 9.3 mg/dL (8.8-10.2); TOTAL BILIRUBIN 0.92 mg/dL (0.20-1.00); TOTAL PROTEIN 5.2 g/dL (6.3-8.3)
[2019-04-22] MEDS ORDERED: SAMSCA PO ONE (07:42)
[2019-04-22] MEDS ORDERED: ALBUMIN 25% IV ONE (08:00)
[2019-04-22] MEDS: COLACE PO SCH (09:41)
[2019-04-22] MEDS: XIFAXAN PO SCH ×2 (09:41→21:27)
[2019-04-22] MEDS: LACTULOSE PO SCH ×2 (09:41→21:26)
--- NOTE | 2019-04-22 09:41 | Diag Imaging Result Doc PS360 ---
US ABD PARACENTESIS W S/I - 04/22/2019 INDICATION: therapeutic prior to discharge from hospital COMPARISON: 04/12/2019 FINDINGS: The risks and benefits of the procedure were discussed with the patient. All questions were answered. Written and verbal consent was obtained. Ultrasound scanning demonstrated ascites. Overlying skin was prepped and draped in sterile fashion. Local anesthesia was achieved with injection of 10 cc 1% lidocaine. The paracentesis catheter was advanced until the return of ascites fluid. 8.5 L was aspirated. The catheter was withdrawn intact. There were no known complications. IMPRESSION: Technically successful ultrasound-guided paracentesis with no known complications. Electronically signed by Tonio Christy 04/22/2019 9:38 AM
[2019-04-22] MEDS: PERCOCET-10 PO PRN (10:05)
[2019-04-22] MEDS: LEVAQUIN PO SCH (13:22)
--- NOTE | 2019-04-22 21:43 | PROGRESS NOTE ---
DATE: 04/22/2019 SUBJECTIVE: The patient is a little confused today, and she is barely eating according to her family. OBJECTIVE: Vital Signs: Temperature 97.8 degrees, blood pressure 115/45, heart rate 81, respirations 16, O2 saturation 98% on room air. General: This is a chronically ill-appearing elderly female lying in bed in no acute distress. Heart: S1, S2 normal. Regular rate and rhythm. Lungs: Equal air entry bilaterally. No wheezing. No rales. Abdomen: Positive bowel sounds. Soft, nontender, nondistended. Extremities: Has trace pedal edema. Neurologic: The patient is awake but confused. LABORATORY DATA: White blood cell count 6.3, hemoglobin 11, hematocrit 36, platelets 133,000. INR 1.3. Sodium 127, potassium 5, chloride 95, CO2 20, BUN 29, creatinine 1, glucose 118, AST 37, ALT 36, alkaline phosphatase 261. ASSESSMENT AND PLAN: 1. End stage liver cirrhosis with refractory ascites. The patient underwent an ultrasound-guided paracentesis today at which time 8.5 L of fluid was removed. The patient received albumin following the procedure. Further management as per GI. 2. Acute kidney injury. Improved. 3. Hyponatremia. We will check urine osmolarity and urine sodium. 4. Hyperkalemia. Unchanged. Continue to hold the Aldactone. 5. Urinary tract infection secondary to Pseudomonas. Continue on oral Levaquin. 6. Hepatic encephalopathy. Continue on lactulose and rifaximin. 7. Insulin-dependent diabetes mellitus. Continue on Lantus and sliding scale insulin. 8. Hypothyroidism. Continue on Synthroid. 9. Disposition. The patient is currently a DNR level 1. The patient's son and power of assistant district attorney are in agreement with the patient going to [facility] for rehab once she is medically stable. cc: Julieta Talley MD [facility]
[2019-04-23] MEDS: HUMULIN R SUBQ SCH ×4 (06:31→21:27)
[2019-04-23] MEDS: PREVACID SOLUTAB PO SCH (06:32)
[2019-04-23] MEDS: SYNTHROID PO SCH (06:32)
[2019-04-23 07:30] LABS: ALB/GLOB RATIO 1.2; ALBUMIN 2.6 g/dL (3.5-5.0); CALCIUM 9.7 mg/dL (8.8-10.2); CREATININE 0.9 mg/dL (0.5-0.9); MAGNESIUM 1.8 mg/dL (1.5-2.7); POTASSIUM 4.6 mmol/L (3.5-5.1); TOTAL BILIRUBIN 1.17 mg/dL (0.20-1.00); TOTAL PROTEIN 4.8 g/dL (6.3-8.3)
[2019-04-23 07:31] LABS: BASO# 0.01 X1000 (0.0-0.2); BASO% 0.2 % (0.0-0.8); EOS# 0.05 X1000 (0.0-0.7); EOS% 1.1 % (0.0-10.0); HEMATOCRIT 32.2 % (37.0-47.0); HEMOGLOBIN 10.2 g/dL (12.0-16.0); LYMPH# 0.27 X1000 (1.2-3.4); LYMPH% 5.9 % (20.5-51.1); MCH 31.2 PG (27-31); MCHC 31.7 g/dL (33-37); MCV 98.5 FL (81-99); MONO# 0.37 X1000 (0.11-0.59); MONO% 8.1 % (1.7-9.3); MPV 9.5 FL (7.4-10.4); NEUT# 3.85 X1000 (1.4-6.5); NEUT% 84.7 % (42.2-75.2); PLT 94 X1000 (130-400); RBC 3.27 XMIL (4.2-5.4); RDW 14.5 % (11.5-14.5); WBC 4.55 X1000 (4.8-10.8)
[2019-04-23] MEDS ORDERED: SAMSCA PO ONE (07:51)
[2019-04-23] MEDS: COLACE PO SCH (09:51)
[2019-04-23] MEDS: LACTULOSE PO SCH ×2 (09:51→21:27)
[2019-04-23] MEDS: XIFAXAN PO SCH ×2 (09:51→21:26)
[2019-04-23] MEDS: PERCOCET-10 PO PRN (09:57)
[2019-04-23] MEDS: LEVAQUIN PO SCH (14:17)
[2019-04-23] MEDS: MEGACE LIQUID PO SCH ×2 (14:17→21:26)
--- NOTE | 2019-04-23 15:01 | PROGRESS NOTE ---
DATE: 04/23/2019 SUBJECTIVE: The patient is resting comfortably in bed. She is still not eating very well. No acute events noted overnight. OBJECTIVE: Vital Signs: Temperature 97.6 degrees, blood pressure 114/58, heart rate 93, respirations 18, O2 saturation 99% on room air. General: This is a chronically ill-appearing elderly female sitting up in bed. No acute distress. Heart: S1, S2 normal. Tachycardic. Lungs: Equal air entry bilaterally. No crackles. No rales. Abdomen: Positive bowel sounds. Soft, nontender, nondistended. Extremities: No edema, no cyanosis. Neurologic: The patient is awake and alert. LABS: White blood cell count 4.5, hemoglobin 10, hematocrit 32, platelets 94,000. Sodium 131, potassium 4.6, chloride 96, CO2 22, BUN 26, creatinine 0.9, glucose 136, magnesium 1.8. ASSESSMENT AND PLAN: 1. End-stage liver cirrhosis with refractory ascites. Management as per GI. 2. Status post large volume paracentesis. Aware. 3. Acute kidney injury. Resolved. 4. Hyponatremia. Improved. We will give the patient another dose of Samsca today. 5. Hyperkalemia. Improved. 6. Urinary tract infection secondary to Pseudomonas. Continue on oral Levaquin. 7. Hepatic encephalopathy. Continue on lactulose and rifaximin. 8. Hypothyroidism. Continue on Synthroid. 9. Insulin-dependent diabetes mellitus. Continue on Lantus and sliding scale insulin. 10. Disposition. We will likely plan to discharge the patient to [facility] rehab on Friday. cc: MD DANIELLE Albert
[2019-04-24] MEDS: PREVACID SOLUTAB PO SCH (06:08)
[2019-04-24] MEDS: SYNTHROID PO SCH (06:09)
[2019-04-24] MEDS: HUMULIN R SUBQ SCH ×4 (06:24→20:46)
[2019-04-24 08:15] LABS: EOS# 0.05 X1000 (0.0-0.7); HEMATOCRIT 33.3 % (37.0-47.0); HEMOGLOBIN 10.9 g/dL (12.0-16.0); IMM GRAN# 0.02 X1000 (0.0-0.04); IMM GRAN% 0.4 % (0.0-0.5); LYMPH# 0.36 X1000 (1.2-3.4); MCH 32.2 PG (27-31); MCHC 32.7 g/dL (33-37); MCV 98.2 FL (81-99); MONO# 0.39 X1000 (0.11-0.59); MONO% 7.6 % (1.7-9.3); MPV 9.6 FL (7.4-10.4); PLT 98 X1000 (130-400); RBC 3.39 XMIL (4.2-5.4); RDW 14.4 % (11.5-14.5); WBC 5.12 X1000 (4.8-10.8)
[2019-04-24 08:37] LABS: ALB/GLOB RATIO 1.1; ALBUMIN 2.5 g/dL (3.5-5.0); CALCIUM 9.4 mg/dL (8.8-10.2); CREATININE 0.9 mg/dL (0.5-0.9); MAGNESIUM 1.9 mg/dL (1.5-2.7); POTASSIUM 4.4 mmol/L (3.5-5.1); TOTAL BILIRUBIN 0.8 mg/dL (0.20-1.00); TOTAL PROTEIN 4.7 g/dL (6.3-8.3)
[2019-04-24] MEDS: XIFAXAN PO SCH ×2 (08:55→20:47)
[2019-04-24] MEDS: ALDACTONE PO SCH (08:55)
[2019-04-24] MEDS: MEGACE LIQUID PO SCH ×2 (08:55→20:47)
[2019-04-24] MEDS: LACTULOSE PO SCH ×3 (08:55→20:47)
[2019-04-24] MEDS: LASIX PO SCH (08:55)
[2019-04-24] MEDS: COLACE PO SCH (08:55)
[2019-04-24] MEDS: PERCOCET-10 PO PRN (12:05)
[2019-04-24] MEDS: LEVAQUIN PO SCH (13:47)
--- NOTE | 2019-04-24 18:42 | PROGRESS NOTE ---
DATE: 04/24/2019 SUBJECTIVE: The patient is resting in bed. She has been complaining of more pain mainly in her back and her hip. She is not eating well and she has not had a bowel movement since . OBJECTIVE: Vital Signs: Temperature 98.2 degrees, blood pressure 112/62, heart rate 92, respirations 20, O2 saturations 100% on room air. General: This is a chronically ill-appearing elderly female lying in bed in no acute distress. Heart: S1, S2 normal. Tachycardic. Lungs: Equal air entry bilaterally. No wheezing, no rales, no rhonchi. Abdomen: Positive bowel sounds. Soft. Extremities: No edema, no cyanosis. Neuro: The patient is alert and oriented x3. LABS: Hemoglobin 10, hematocrit 33, platelets 98,000. Sodium 131, potassium 4.4, chloride 97, CO2 21, BUN 25, creatinine 0.9, glucose 192. ASSESSMENT AND PLAN: 1. End-stage liver cirrhosis with refractory ascites. Continue with diuretic therapy and serial paracentesis. Further management as per GI. 2. Status post large volume paracentesis. Aware. 3. Chronic hyponatremia. Aware. 4. Urinary tract infection secondary to Pseudomonas. Continue on oral Levaquin. 5. Hepatic encephalopathy. Continue on lactulose and rifaximin. 6. Constipation. Will increase the lactulose dosage. 7. Hypothyroidism. Continue on Synthroid. 8. Uncontrolled insulin-dependent diabetes mellitus. Will restart the Lantus and continue with sliding scale insulin. 9. Disposition. We will plan to discharge the patient to [facility] on Friday. cc: Julieta Talley MD
[2019-04-25] MEDS: LACTULOSE PO SCH ×4 (00:04→23:02)
[2019-04-25] MEDS: HUMULIN R SUBQ SCH ×4 (06:27→21:36)
[2019-04-25] MEDS: SYNTHROID PO SCH (06:27)
[2019-04-25] MEDS: PREVACID SOLUTAB PO SCH (06:27)
[2019-04-25 07:23] LABS: EOS# 0.04 X1000 (0.0-0.7); EOS% 0.7 % (0.0-10.0); HEMOGLOBIN 10.7 g/dL (12.0-16.0); IMM GRAN# 0.02 X1000 (0.0-0.04); IMM GRAN% 0.3 % (0.0-0.5); LYMPH# 0.35 X1000 (1.2-3.4); LYMPH% 6.1 % (20.5-51.1); MCH 31.7 PG (27-31); MCHC 32.4 g/dL (33-37); MCV 97.6 FL (81-99); MONO# 0.38 X1000 (0.11-0.59); MONO% 6.6 % (1.7-9.3); MPV 9.8 FL (7.4-10.4); NEUT# 4.97 X1000 (1.4-6.5); NEUT% 86.3 % (42.2-75.2); PLT 113 X1000 (130-400); RBC 3.38 XMIL (4.2-5.4); RDW 14.2 % (11.5-14.5); WBC 5.76 X1000 (4.8-10.8)
[2019-04-25 07:49] LABS: ALB/GLOB RATIO 1.2; ALBUMIN 2.6 g/dL (3.5-5.0); CALCIUM 9.4 mg/dL (8.8-10.2); CREATININE 0.9 mg/dL (0.5-0.9); MAGNESIUM 1.8 mg/dL (1.5-2.7); POTASSIUM 4.8 mmol/L (3.5-5.1); TOTAL BILIRUBIN 0.77 mg/dL (0.20-1.00); TOTAL PROTEIN 4.7 g/dL (6.3-8.3)
[2019-04-25 08:33] LABS: ANISOCYTOSIS 1+; LYMPHS 7 % (21-51); MONO 8 % (1-9); SEGS 85 % (42-75)
[2019-04-25 08:34] LABS: POLYCHROM 1+
[2019-04-25] MEDS ORDERED: SAMSCA PO ONE (08:38)
[2019-04-25] MEDS ORDERED: LANTUS INSULIN SUBQ SCH ×2 (09:00)
[2019-04-25] MEDS ORDERED: LEVEMIR SUBQ SCH (09:00)
[2019-04-25] MEDS: OXY IR PO PRN ×2 (09:38→21:40)
[2019-04-25] MEDS: LASIX PO SCH (09:38)
[2019-04-25] MEDS: ALDACTONE PO SCH (09:38)
[2019-04-25] MEDS: COLACE PO SCH (09:38)
[2019-04-25] MEDS: XIFAXAN PO SCH ×2 (09:38→21:36)
[2019-04-25] MEDS: MEGACE LIQUID PO SCH ×2 (09:39→21:35)
[2019-04-25] MEDS: LEVAQUIN PO SCH (13:55)
--- NOTE | 2019-04-25 19:56 | PROGRESS NOTE ---
DATE: 04/25/2019 SUBJECTIVE: The patient states that she does not feel good today and she cannot really quantify what is wrong. OBJECTIVE: Vital Signs: Temperature 98.1 degrees, blood pressure 109/65, heart rate 106, respirations 20, O2 saturation 98% on room air. General: This is a chronically ill-appearing elderly female lying in bed in no acute distress. Heart: S1, S2 normal. Lungs: Equal air entry bilaterally. No wheezing, no rales, no rhonchi. Abdomen: Slightly distended, positive bowel sounds, soft, nontender. Extremities: No edema, no cyanosis. Neuro: The patient is alert and oriented x3. LABS: White blood cell count 5.7, hemoglobin 10, hematocrit 33, platelets 113,000. Sodium 127, potassium 4.8, chloride 94, BUN 27, creatinine 0.9, glucose 189, albumin 2.6. ASSESSMENT AND PLAN: 1. End-stage liver cirrhosis with refractory ascites. Continue on diuretic therapy and serial paracentesis as directed by GI. 2. Status post large volume paracentesis. Aware. 3. Chronic hyponatremia. Stable. 4. Urinary tract infection secondary to Pseudomonas. Today is day 4 of oral Levaquin therapy. 5. Hepatic encephalopathy. Continue on lactulose and rifaximin. 6. Constipation. Continue on lactulose. 7. Hypothyroidism. Continue on Synthroid. 8. Uncontrolled insulin-dependent diabetes mellitus. Will continue with Lantus twice a day plus sliding scale insulin. 9. Severe protein calorie malnutrition. Aware. Will add Glucerna with each meal. 10. Chronic pain. The patient is on oxycodone IR. 11. Thrombocytopenia. Aware. 12. Disposition. The patient can be discharged to inpatient rehab once she is medically stable. cc: Julieta Talley MD
[2019-04-25] MEDS: LANTUS INSULIN SUBQ SCH (21:36)
[2019-04-26] MEDS: PREVACID SOLUTAB PO SCH (06:19)
[2019-04-26] MEDS: HUMULIN R SUBQ SCH ×4 (06:19→21:17)
[2019-04-26] MEDS: SYNTHROID PO SCH (06:19)
[2019-04-26] MEDS: OXY IR PO PRN (06:23)
[2019-04-26 07:35] LABS: HEMATOCRIT 34.1 % (37.0-47.0); HEMOGLOBIN 11.4 g/dL (12.0-16.0); MCHC 33.4 g/dL (33-37); MCV 98.8 FL (81-99); MPV 9.6 FL (7.4-10.4); RBC 3.45 XMIL (4.2-5.4); RDW 14.8 % (11.5-14.5); WBC 6.45 X1000 (4.8-10.8)
[2019-04-26 07:40] LABS: INR 1.34; PROTIME 16.8 Seconds (11.0-16.0)
[2019-04-26 07:51] LABS: ALBUMIN 2.3 g/dL (3.5-5.0); CALCIUM 9.7 mg/dL (8.8-10.2); POTASSIUM 4.6 mmol/L (3.5-5.1); TOTAL BILIRUBIN 0.69 mg/dL (0.20-1.00); TOTAL PROTEIN 4.7 g/dL (6.3-8.3)
[2019-04-26] MEDS ORDERED: TUCKS HEMORRHOIDAL OINTMENT PR PRN (11:07)
[2019-04-26] MEDS ORDERED: CALMOSEPTINE OINTMENT TOP PRN (11:08)
[2019-04-26] MEDS: LASIX PO SCH (11:24)
[2019-04-26] MEDS: MEGACE LIQUID PO SCH ×2 (11:24→21:17)
[2019-04-26] MEDS: XIFAXAN PO SCH ×2 (11:24→21:17)
[2019-04-26] MEDS: COLACE PO SCH (11:25)
[2019-04-26] MEDS: LACTULOSE PO SCH ×2 (11:25→16:25)
[2019-04-26] MEDS: ALDACTONE PO SCH (11:25)
[2019-04-26] MEDS: LANTUS INSULIN SUBQ SCH ×2 (11:25→21:18)
[2019-04-26] MEDS: LEVAQUIN PO SCH (12:48)
[2019-04-26] MEDS ORDERED: ANUSOL-HC CREAM PR PRN (12:56)
--- NOTE | 2019-04-26 16:37 | GASTROENTEROLOGY PROGRESS NOTE ---
DATE: 04/26/2019 SUBJECTIVE: The patient was awake and alert. Her son was at the bedside. She still just does not feel well. No specific reasons as to her main complaint. She did received a paracentesis last week with 8.5 L of fluid removed. OBJECTIVE: Vital Signs: Temperature 98.2 degrees, pulse 105, respirations 16, blood pressure 123/66. General: Patient is awake, alert, in no acute distress. Abdomen: Some distention noted otherwise soft. Positive bowel sounds. LABORATORY: Hematology. WBC 6.45, hemoglobin 11.4, hematocrit 34.4, MCV 98.8, platelet 112,000. Chemistry. Sodium 130, potassium 4.6, chloride 97, CO2 21, BUN 27, creatinine 1.0, glucose 138, total bilirubin 0.69, AST 28, ALT 24, alkaline phosphatase 207. ASSESSMENT AND PLAN: 1. End-stage liver disease/cirrhosis of the liver. Continue current management. Diuretics have been restarted. Continue lactulose. 2. Ascites with paracentesis done last week with 8.5 L of fluid removed. Currently patient's abdomen is soft. 3. Hepatic encephalopathy. Patient is on lactulose and Xifaxan. Continue current management. 4. Other medical problems urinary tract infection, constipation, hypothyroidism, diabetes, malnutrition, chronic pain. Continue current management. I believe they are trying to get inpatient rehab for the patient once she is stable to be discharged. Continue current management. We will continue to follow during her hospital course and recommend she follow up with us as an outpatient. I have discussed this case with Dr. Torres. Dictated by ESTEFANIA Abel for José Manuel Torres MD cc: ESTEFANIA Ku MD
[2019-04-27] MEDS: LACTULOSE PO SCH ×2 (01:19→09:29)
--- NOTE | 2019-04-27 03:54 | PROGRESS NOTE ---
DATE: 04/26/2019 SUBJECTIVE: The patient is resting in bed. She has not been eating well and she is very weak. She has been unable to participate with physical therapy. OBJECTIVE: Vital Signs: Temperature 98.6 degrees, blood pressure 123/66, heart rate 105, respirations 14, O2 saturations 99% on room air. General: This is a chronically ill-appearing, elderly female, lying in bed in no acute distress. Heart: S1, S2, normal. Tachycardic. Lungs: Equal air entry bilaterally. No wheezing. No rales. No rhonchi. Abdomen: Positive bowel sounds. Soft, nontender, nondistended. Extremities: 1+ edema bilaterally. Neurologic: The patient is alert and oriented x3. LABS: white blood cell count 6.4, hemoglobin 11, hematocrit 34, platelets 112,000. INR 1.3. Sodium 130, potassium 4.6, chloride 97, CO2 21, BUN 27, creatinine 1, glucose 138, total bilirubin 0.6, AST 28, ALT 24, alkaline phosphatase 207. ASSESSMENT AND PLAN: 1. End-stage liver cirrhosis with refractory ascites. Continue on diuretic therapy and Aldactone. 2. Status post large volume paracentesis. Aware. 3. Chronic hyponatremia. Stable. 4. Urinary tract infection secondary to Pseudomonas. Today is day 4 of oral Levaquin therapy. 5. Hepatic encephalopathy. Continue on lactulose and rifaximin. 6. Constipation. Improved. Continue on lactulose. 7. Hypothyroidism. Continue on Synthroid. 8. Insulin-dependent diabetes mellitus. Continue on Lantus plus sliding scale insulin. 9. Protein-calorie malnutrition. Aware. Ensure has been added to the patient's diet. However, she is still not eating. She is currently on Megace. She is not interested in percutaneous endoscopic gastrostomy tube placement. 10. Chronic pain. Continue on oxycodone IR. 11. Thrombocytopenia. Stable. 12. Disposition. The patient's family was not ready to discharge the patient to [facility] today. She should be ready for discharge tomorrow. There is a bed available. cc: Julieta Talley MD
[2019-04-27] MEDS: PREVACID SOLUTAB PO SCH ×2 (05:43→06:24)
[2019-04-27] MEDS: SYNTHROID PO SCH ×2 (05:43→06:24)
[2019-04-27] MEDS: HUMULIN R SUBQ SCH ×2 (06:24→11:20)
[2019-04-27 08:29] LABS: ALB/GLOB RATIO 0.8; ALBUMIN 2.1 g/dL (3.5-5.0); CALCIUM 9.6 mg/dL (8.8-10.2); POTASSIUM 4.5 mmol/L (3.5-5.1); TOTAL BILIRUBIN 0.62 mg/dL (0.20-1.00); TOTAL PROTEIN 4.8 g/dL (6.3-8.3)
[2019-04-27] MEDS: COLACE PO SCH (09:29)
[2019-04-27] MEDS: ALDACTONE PO SCH (09:29)
[2019-04-27] MEDS: LANTUS INSULIN SUBQ SCH (09:29)
[2019-04-27] MEDS: MEGACE LIQUID PO SCH (09:30)
[2019-04-27] MEDS: XIFAXAN PO SCH (09:30)
[2019-04-27] MEDS: OXY IR PO PRN (09:30)
[2019-04-27] MEDS: LASIX PO SCH (09:30)
[2019-04-27] MEDS: LEVAQUIN PO SCH (13:13)
--- NOTE | 2019-04-27 16:09 | DISCHARGE SUMMARY ---
ADMISSION DATE: 04/18/2019 DISCHARGE DATE: 04/27/2019 DISCHARGE DISPOSITION: Rehabilitation in [place]. DISCHARGE CONDITION: Hemodynamically stable. DISCHARGE DIAGNOSES: 1. Acute encephalopathy likely related to hepatic encephalopathy. 2. 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 3. Acute kidney injury with clinical volume depletion. 4. Hyperkalemia. 5. Hypoglycemia. 6. Bradycardia due to verapamil use. 7. History of insulin-dependent diabetes mellitus. 8. Hyperlipidemia. 9. Hypothyroidism. DISCHARGE MEDICATIONS: 1. Spironolactone 50 mg daily, furosemide 20 mg daily, docusate 100 mg daily, lansoprazole 30 mg in the morning time, levothyroxine 150 mcg daily, rifaximin 550 mg b.i.d., hydrocortisone 2.5% cream 1 g topical as needed, lactulose 30 mL every 8 hours, insulin glargine 20 units subcutaneous qHS., levofloxacin 500 mg daily for 2 days for Pseudomonas UTI, oxycodone immediate release 5 mg every 6 hours as needed for pain, 15 tablets have been prescribed. DISCHARGE VITALS SIGNS: At the time of discharge temperature 98.3 degrees, pulse 85, respiratory rate 20, blood pressure 116/56, saturating 100% on room air. PHYSICAL EXAMINATION: General: Cachectic. Not in acute distress. Oral cavity is moist. Lungs: Air entry bilaterally equal. No wheezing or crackles. Cardiac: S1, S2 normal. No murmur or gallop. Abdomen: Soft, nontender. Tympanic to percussion. Active bowel sounds. Extremities: Bilateral lower extremity edema. LABORATORY DATA: Suggestive of a normal WBC, normal hemoglobin of 11.6, platelet count 113,000. WBC is 6.3, hemoglobin 11.6, INR is 1.3. Sodium 127, chloride 95, BUN 29, creatinine 1, blood glucose 118. SIGNIFICANT MICROBIOLOGY DURING HOSPITAL ADMISSION: Urine culture on 04/21/2019 is growing Pseudomonas aeruginosa which is sensitive to levofloxacin. SIGNIFICANT IMAGING DURING HOSPITAL ADMISSION: Hip/pelvis x-ray did not have any acute pathology on admission. Shoulder x-ray had severe long-standing arthritis without any acute fracture. Knee x-ray did not have any acute bony abnormality. Chest x-ray had low lung volumes. PROCEDURES DURING HOSPITAL ADMISSION: She underwent ultrasound-guided paracentesis with 8.5 L of intra peritoneal fluid removed. Electrocardiogram presentation had normal sinus rhythm. HOSPITAL COURSE SUMMARY: Ms. Huntley is an 83 year old lady who presented with chief complaint of recurrent fall, altered mental status, and right hip pain. In the emergency room she was found to be clinically dehydrated, acute kidney injury. The x-ray examination of her bones did not have an acute fracture; however, she was very lethargic, so the Hospitalist Krystina berg was consulted for further management. Next she was admitted and Gastroenterology Team Dr. Torres was consulted. She underwent paracentesis and intravenous albumin. Her diuretic therapy was held due to renal insufficiency, and after that her kidney function improved. Next the Palliative Care team was consulted. The patient's code status was DNR level 1. At the time of discharge her oral intake is still minimal; however, her kidney function has remained stable and she has been having good bowel movements on lactulose and Xifaxan, so her hepatic encephalopathy is also deemed to be improving. So it was decided to discharge the patient to rehab. Please note her insulin has been decreased to 20 mg subcu daily instead of b.i.d. FOLLOW-UP: Follow blood sugar levels and fasting in the morning time and once during daytime to avoid hypoglycemia and adjust insulin dose accordingly next. Follow BMP 3 days after discharge for followup of kidney function and decrease diuretic dose if required. TIME SPENT: More than 30 minutes of time was spent in discharging this patient. cc: Rustam Tai MD MTDVarinder
[2019-04-27 17:36] VITALS: BP 116/62
--- NOTE | 2019-04-28 05:13 | GASTROENTEROLOGY PROGRESS NOTE ---
DATE: 04/27/2019 SUBJECTIVE: Patient is awake and alert. Both her sons are at the bedside. I believe there are plans for her to go to [facility]. Patient has had several bowel movements over the last several days. She had paracentesis last week with 8.5 L of fluid removed. She normally has a paracentesis approximately every 2 weeks. OBJECTIVE: Vital Signs: Temperature 97.9 degrees, pulse 105, respirations 20, and blood pressure 116/62. General: The patient was awake and alert in no acute distress. Abdomen: Soft, nontender. Some ascites but that has improved after her paracentesis. LABORATORY: Hematology WBC 6.45, hemoglobin 11.4, hematocrit 34.1, MCV 98.8, and platelets 112,000. Chemistry: Sodium 125, potassium 4.5, chloride 95, CO2 19, BUN 32, creatinine 1.0, glucose 164, total bilirubin 0.62, AST 24, ALT 20, and alkaline phosphatase 179. ASSESSMENT AND PLAN: 1. Hepatic encephalopathy has improved. Continue Xifaxan and lactulose. 2. End-stage liver disease/cirrhosis of the liver. Continue current management. 3. Acute kidney injury. Continue to monitor. Patient has been restarted on her diuretics. 4. Electrolyte imbalance. Continue to follow. 5. Diabetes. PLAN: Continue current medications as recommended above. Continue her lactulose and Xifaxan along with diuretics. Patient is planning to go to [facility]. Recommend she follow up with us as an outpatient. Her next paracentesis can be set up as an outpatient. I have recommended the son call us if she is still in rehab and we can schedule the paracentesis up at [facility] when needed. We will continue to follow during her hospital course and follow up with her in the office after discharge. I have discussed this case with Dr. Torres. Dictated by ESTEFANIA Abel for José Manuel Torres MD cc: ESTEFANIA Ku MD [facility]
== END 2019-04-27 17:57 | DRG 441 ==
LOC: ED 11:11 → 3N 15:26 → SUATTDRO 15:26
PROVIDERS: ATTEND Internal Medicine